=== PATIENT | male | born 1950 | race Two or more races ===

== ENCOUNTER 2017-12-05 23:09 | Inpatient (IN) | payer MEDICARE, OTHER ==
[~2017-12-05] VITALS: Ht 170.2 cm; Wt 58.5 kg
--- NOTE | 2017-12-06 01:00 | NUR ---
GPS ADMISSION NOTE, RECEIVED PATIENT FROM [facility]. PATIENT ARRIVED ON THIS UNIT AT 0100 VIA STRETCHER WITH 2 EMT ESCORTS. PATIENT ADMITTED ON A 5150 HOLD FOR DTO. PER HOLD PATIENT HAS BEEN POUNDING ON THE DOORS AND THROWING FURNITURE AROUND HIS APARTMENT. PATIENT HAS ALSO THREATENED HIS ROOMMATE AND NOW HIS ROOMMATE IS FEARFUL FOR HIS SAFETY. PATIENT ALSO HAS NOT BEEN TAKING HIS MEDICATION FOR ONE MONTH. PATIENT UNABLE TO CONTRACT FOR SAFETY AT THIS TIME. THE 5150 WAS REVIEWED AND THE DOCUMENTATION IN THE 5150 HOLD APPEARS TO REFLECT THE PRESENTATION OF THE PATIENT. UPON FACE TO FACE ASSESSMENT PATIENT IS CURRENTLY LYING IN BED AWAKE, HAS NO S/S OR COMPLAINTS OF PAIN AT THIS TIME. PATIENT IS DISPLAYING NO S/S OF APPARENT DISTRESS. PATIENT BREATHING IS UNLABORED WITH EQUAL RISE AND FALL OF THE CHEST. PATIENT IS ALERT AND ORIENTATED X 3 ON ROOM AIR. PATIENT ASSISTED WITH TURING AND REPOSITIONING Q2HR AND PRN FOR COMFORT AND CIRCULATION. PATIENT HAS NO NEEDS AT THIS TIME. PATIENT IS NOTED TO CALM, DISHEVELED, DISORGANIZED, COOPERATIVE, AND NEEDS REDIRECTION. PATIENT IS UNDER THE PSYCHIATRIC CARE OF DR. PALACIOS AND THE MEDICAL CARE OF DR LUNA. PATIENT BELONGINGS WERE INVENTORIED AND CHECKED FOR CONTRABAND. ALL CONTRABAND REMOVED AND STORED IN PATIENT HALLWAY LOCKER. PATIENT ADVANCED DIRECTIVES PREFERENCE, IMMUNIZATIONS QUESTIONER, NECESSARY PAPERWORK AND, SKIN ASSESSMENT COMPLETED. PATIENT ORIENTATED TO ROOM, FLOOR, AND STAFF WITH ALL QUESTIONS ANSWERED. PATIENT EDUCATED ON THE USE OF THE CALL JOSHUA. PATIENT BED SIDE RAILS ARE UP X 2 FOR SAFETY. PATIENT BED IS LOCKED, LOW AND I WILL CONTINUE TO MONITOR THIS PATIENT Q 15 MIN WITH THE HELP OF STAFF TO MAINTAIN SAFETY.
[2017-12-06] MEDS ORDERED: ZOLPIDEM TARTRATE 5 MG TABLET PO PRN (01:30)
[2017-12-06] MEDS ORDERED: LORAZEPAM 0.5 MG TABLET PO PRN (01:30)
[2017-12-06] MEDS ORDERED: MAGNESIUM HYDROXIDE 30 ML UDC PO PRN (01:30)
[2017-12-06] MEDS ORDERED: ACETAMINOPHEN 325 MG TABLET PO PRN (01:30)
[2017-12-06] MEDS ORDERED: MAG HYDROX/AL HYDROX/SIMETH 30 ML UDC PO PRN (01:30)
[2017-12-06] MEDS ORDERED: LEVE500T20 PO (01:54)
[2017-12-06] MEDS ORDERED: ZIPR80CA2 PO (02:04)
[2017-12-06] MEDS ORDERED: QUET400T PO (02:04)
[2017-12-06] MEDS ORDERED: CYAN10009 PO (02:04)
[2017-12-06] MEDS ORDERED: CHOL200026 PO (02:04)
[2017-12-06 02:47] VITALS: BP 105/65
[2017-12-06 07:29] LABS: ALBUMIN 3.1 g/dL (3.4-5.0); BILIRUBIN,TOTAL 0.5 mg/dL (0.2-1.0); CALCIUM, SERUM 8.6 mg/dL (8.5-10.1); POTASSIUM 3.5 mmol/L (3.5-5.1); TOTAL PROTEIN, SERUM 6.4 g/dL (6.4-8.2)
[2017-12-06 07:31] LABS: BASOPHILS # (AUTO) 0.1 /CMM (0.0-0.2); BASOPHILS % (AUTO) 0.7 % (0.0-2.0); EOSINOPHILS % (AUTO) 2.9 % (0.0-6.0); HEMATOCRIT 37 % (39-51); HEMOGLOBIN 12.3 g/dL (13.5-17.5); LYMPHOCYTES # (AUTO) 3.3 /CMM (0.8-4.8); LYMPHOCYTES % (AUTO) 43.3 % (20.0-44.0); MEAN CORPUSCULAR HEMOGLOBIN 31 PG (26.0-33.0); MEAN CORPUSCULAR HGB CONC 33 g/dl (31.0-36.0); MEAN CORPUSCULAR VOLUME 93 fL (80-96); MONOCYTES # (AUTO) 0.7 /CMM (0.1-1.30); MONOCYTES % (AUTO) 9.5 % (2.0-12.0); NEUTROPHILS # (AUTO) 3.3 /CMM (1.8-8.9); NEUTROPHILS % (AUTO) 43.6 % (43.0-81.0); PLATELET COUNT (AUTO) 177 /CMM (150-450); RDW COEFFICIENT OF VARIATION 14.6 (11.5-15.0); RED BLOOD CELL COUNT(AUTO) 3.98 MIL/uL (4.5-6.0); WHITE BLOOD COUNT (AUTO) 7.5 K/uL (4.3-11.0)
[2017-12-06 08:00] VITALS: BP 101/53
[2017-12-06] MEDS: NICOTINE PATCH (21MG) 21 MG PATCH.TD24 TD SCH (09:21)
[2017-12-06] MEDS: QUETIAPINE FUMARATE 25 MG TABLET PO SCH ×2 (12:19→16:59)
[2017-12-06 16:00] VITALS: BP 104/65
[2017-12-06 20:58] VITALS: BP 109/62
[2017-12-06] MEDS: QUETIAPINE FUMARATE 100 MG TABLET PO SCH (21:59)
[2017-12-07 07:46] LABS: CHOLESTEROL 108 mg/dL (<200); HDL CHOLESTEROL 42 mg/dL (40-60); LDL 60 mg/dL (0-99); TRIGLYCERIDES 62 mg/dL (30-150)
[2017-12-07 08:00] VITALS: BP 124/68
[2017-12-07] MEDS: NICOTINE PATCH (21MG) 21 MG PATCH.TD24 TD SCH (08:00)
[2017-12-07] MEDS: QUETIAPINE FUMARATE 25 MG TABLET PO SCH ×3 (08:00→16:27)
--- NOTE | 2017-12-07 11:57 | NUR ---
JOELLEN sent out referrals for the pt to these ch[facility] facilities: [facility]
--- NOTE | 2017-12-07 11:57 | NUR ---
Initial Discharge Plan: Pt currently resides at [address] [place] [address]; ([phone]). Per pt, he does not want to return there. SW will work with the pt and the MD regarding appropriate discharge planning. SW will form a safe and proper discharge.
--- NOTE | 2017-12-07 11:58 | NUR ---
Adriana ([phone]) from [facility] called the SW and stated that the pt was accepted.
--- NOTE | 2017-12-07 11:58 | NUR ---
Psychiatrist, Dr. Lopez, would like the pt to go to [facility] or [facility] in terms of snf facilities.
[2017-12-07 16:29] VITALS: BP 127/90
[2017-12-07 20:20] VITALS: BP 130/65
[2017-12-07] MEDS: QUETIAPINE FUMARATE 100 MG TABLET PO SCH (21:31)
[2017-12-07] MEDS: LEVETIRACETAM (250 MG) 250 MG TABLET PO SCH (21:31)
[2017-12-08] MEDS: NICOTINE PATCH (21MG) 21 MG PATCH.TD24 TD SCH (08:48)
[2017-12-08] MEDS: QUETIAPINE FUMARATE 25 MG TABLET PO SCH ×3 (08:49→16:38)
[2017-12-08] MEDS: CYANOCOBALAMIN 100 MCG TABLET PO SCH (08:49)
[2017-12-08] MEDS: LEVETIRACETAM (250 MG) 250 MG TABLET PO SCH ×2 (08:49→20:58)
[2017-12-08] MEDS: CHOLECALCIFEROL 1,000 UNIT TABLET (VIT D3) PO SCH (08:49)
[2017-12-08 08:59] VITALS: BP 127/80
[2017-12-08 16:00] VITALS: BP 101/60
[2017-12-08 20:00] VITALS: BP 111/77
[2017-12-08] MEDS: QUETIAPINE FUMARATE 100 MG TABLET PO SCH (20:59)
[2017-12-08] MEDS: LORAZEPAM 0.5 MG TABLET PO PRN (23:24)
[2017-12-09 08:00] VITALS: BP 104/64
[2017-12-09] MEDS: NICOTINE PATCH (21MG) 21 MG PATCH.TD24 TD SCH (08:15)
[2017-12-09] MEDS: LEVETIRACETAM (250 MG) 250 MG TABLET PO SCH ×2 (08:15→21:57)
[2017-12-09] MEDS: QUETIAPINE FUMARATE 25 MG TABLET PO SCH ×2 (08:15→16:21)
[2017-12-09] MEDS: CHOLECALCIFEROL 1,000 UNIT TABLET (VIT D3) PO SCH (08:15)
[2017-12-09] MEDS: CYANOCOBALAMIN 100 MCG TABLET PO SCH (08:27)
[2017-12-09 16:11] VITALS: BP 116/64
[2017-12-09 20:00] VITALS: BP 118/55
[2017-12-09] MEDS: QUETIAPINE FUMARATE 100 MG TABLET PO SCH (21:58)
[2017-12-10 08:00] VITALS: BP 104/67
[2017-12-10] MEDS: CHOLECALCIFEROL 1,000 UNIT TABLET (VIT D3) PO SCH (08:45)
[2017-12-10] MEDS: NICOTINE PATCH (21MG) 21 MG PATCH.TD24 TD SCH (08:45)
[2017-12-10] MEDS: LEVETIRACETAM (250 MG) 250 MG TABLET PO SCH ×2 (08:46→20:22)
[2017-12-10] MEDS: QUETIAPINE FUMARATE 25 MG TABLET PO SCH ×2 (08:46→16:37)
[2017-12-10] MEDS: CYANOCOBALAMIN 100 MCG TABLET PO SCH (09:30)
[2017-12-10 16:39] VITALS: BP 109/63
[2017-12-10 20:00] VITALS: BP 107/57
[2017-12-10] MEDS: QUETIAPINE FUMARATE 100 MG TABLET PO SCH (21:13)
[2017-12-11 08:00] VITALS: BP 124/69
[2017-12-11] MEDS: LEVETIRACETAM (250 MG) 250 MG TABLET PO SCH ×2 (08:26→21:28)
[2017-12-11] MEDS: NICOTINE PATCH (21MG) 21 MG PATCH.TD24 TD SCH (08:26)
[2017-12-11] MEDS: QUETIAPINE FUMARATE 25 MG TABLET PO SCH ×2 (08:26→16:39)
[2017-12-11] MEDS: CHOLECALCIFEROL 1,000 UNIT TABLET (VIT D3) PO SCH (08:26)
[2017-12-11] MEDS: CYANOCOBALAMIN 100 MCG TABLET PO SCH (09:00)
[2017-12-11 16:00] VITALS: BP 141/75
[2017-12-11 20:07] VITALS: BP 110/73
[2017-12-11] MEDS: QUETIAPINE FUMARATE 100 MG TABLET PO SCH (21:28)
[2017-12-11] MEDS: LORAZEPAM 0.5 MG TABLET PO PRN (22:21)
[2017-12-12 08:50] VITALS: BP 106/59
[2017-12-12] MEDS: NICOTINE PATCH (21MG) 21 MG PATCH.TD24 TD SCH (08:57)
[2017-12-12] MEDS: CHOLECALCIFEROL 1,000 UNIT TABLET (VIT D3) PO SCH (08:57)
[2017-12-12] MEDS: LEVETIRACETAM (250 MG) 250 MG TABLET PO SCH ×2 (08:57→20:30)
[2017-12-12] MEDS: QUETIAPINE FUMARATE 25 MG TABLET PO SCH ×2 (08:57→16:43)
[2017-12-12] MEDS: CYANOCOBALAMIN 100 MCG TABLET PO SCH (08:59)
[2017-12-12 16:00] VITALS: BP 113/62
[2017-12-12 19:53] VITALS: BP 121/79
[2017-12-12] MEDS: QUETIAPINE FUMARATE 100 MG TABLET PO SCH (21:04)
[2017-12-12] MEDS: LORAZEPAM 0.5 MG TABLET PO PRN (22:58)
[2017-12-13 08:00] VITALS: BP 103/61
[2017-12-13] MEDS: LEVETIRACETAM (250 MG) 250 MG TABLET PO SCH ×2 (08:16→20:29)
[2017-12-13] MEDS: QUETIAPINE FUMARATE 25 MG TABLET PO SCH ×2 (08:16→16:25)
[2017-12-13] MEDS: CHOLECALCIFEROL 1,000 UNIT TABLET (VIT D3) PO SCH (08:16)
[2017-12-13] MEDS: CYANOCOBALAMIN 100 MCG TABLET PO SCH (08:16)
[2017-12-13] MEDS: NICOTINE PATCH (21MG) 21 MG PATCH.TD24 TD SCH (08:16)
[2017-12-13 16:14] VITALS: BP 109/63
[2017-12-13 20:51] VITALS: BP 104/60
[2017-12-13] MEDS: QUETIAPINE FUMARATE 100 MG TABLET PO SCH (21:10)
[2017-12-13] MEDS: LORAZEPAM 0.5 MG TABLET PO PRN (21:47)
[2017-12-14 08:00] VITALS: BP 111/62
[2017-12-14] MEDS: NICOTINE PATCH (21MG) 21 MG PATCH.TD24 TD SCH (08:34)
[2017-12-14] MEDS: LEVETIRACETAM (250 MG) 250 MG TABLET PO SCH ×2 (08:34→21:53)
[2017-12-14] MEDS: CHOLECALCIFEROL 1,000 UNIT TABLET (VIT D3) PO SCH (08:34)
[2017-12-14] MEDS: CYANOCOBALAMIN 100 MCG TABLET PO SCH (08:34)
[2017-12-14] MEDS: QUETIAPINE FUMARATE 25 MG TABLET PO SCH ×2 (08:34→17:12)
[2017-12-14 16:00] VITALS: BP 113/61
[2017-12-14 21:45] VITALS: BP 106/67
[2017-12-14] MEDS ORDERED: QUETIAPINE FUMARATE 100 MG TABLET ONE (22:04)
[2017-12-14] MEDS: QUETIAPINE FUMARATE 100 MG TABLET PO SCH (22:09)
[2017-12-15 07:35] LABS: CALCIUM, SERUM 9.2 mg/dL (8.5-10.1); CREATININE 0.9 mg/dL (0.6-1.3); POTASSIUM 3.9 mmol/L (3.5-5.1)
[2017-12-15] MEDS: QUETIAPINE FUMARATE 25 MG TABLET PO SCH (08:10)
[2017-12-15] MEDS: NICOTINE PATCH (21MG) 21 MG PATCH.TD24 TD SCH (08:10)
[2017-12-15] MEDS: LEVETIRACETAM (250 MG) 250 MG TABLET PO SCH (08:10)
[2017-12-15] MEDS: CYANOCOBALAMIN 100 MCG TABLET PO SCH (08:10)
[2017-12-15] MEDS: CHOLECALCIFEROL 1,000 UNIT TABLET (VIT D3) PO SCH (08:10)
[2017-12-15 08:20] VITALS: BP 116/67
--- NOTE | 2017-12-15 12:52 | NUR ---
Discharge Note: Pt was discharged to [facility] located at [address] [place] [address]; . She was transported via [facility] (Trip #[id number]) at 1:00PM. There was no family member for this pt to contact but the [facility] Liaison is aware and is agreeable with this placement. Upon discharge, pt appeared to be in a euthymic mood with a calm affect. Pt denied suicidal and homicidal ideation as well as both auditory and visual hallucinations. Pt will be under the care of his psychiatrist, Dr. Lopez, located at [address] [facility] [address], [place] [address]; ) and medical laboratory manager, Dr. Bourgeois, located at [address] [place] [address]; ).
--- NOTE | 2017-12-15 13:30 | NUR ---
GPS/RN PATIENT CLEARED FOR DISCHARGE TO [facility] BY DR PALACIOS AND DR GELLER. MEDICATIONS RECONCILED BY BOTH DR'S. EXIT CARE, AFTERCARE PLAN AND MEDICATIONS EXPLAINED TO PATIENT, VERBALIZED UNDERSTANDING. BELONGINGS RETURNED AND D/C PICTURE TAKEN. PATIENT DENIES SI/HI/AH UPON DISCHARGE, PSYCHIATRIC TREATMENT PLANS MET. REPORT GIVEN TO SURAJ AT FACILITY. LEFT UNIT CALM, COOPERATIVE,STABLE CONDITION WITH NO DISTRESS NOTE. AMBULANCE TRANSPORT AT SIDE.
== END 2017-12-15 13:30 | DRG 885 ==
LOC: GPS 12-06 00:47
PROVIDERS: ADMIT Psychiatry & Neurology Psychiatry; ATTEND Psychiatry & Neurology Psychiatry
DX: F25.0 Schizoaffective disorder, bipolar type (principal); N17.9 Acute kidney failure, unspecified; E44.1 Mild protein-calorie malnutrition; F29 Unspecified psychosis not due to a substance or known physiological condition; F41.9 Anxiety disorder, unspecified; N40.0 Benign prostatic hyperplasia without lower urinary tract symptoms; Z81.8 Family history of other mental and behavioral disorders; Z79.899 Other long term (current) drug therapy; D63.8 Anemia in other chronic diseases classified elsewhere; Z72.0 Tobacco use; G40.909 Epilepsy, unspecified, not intractable, without status epilepticus
CPT/HCPCS: 36415; 80048-TC; 80053-TC; 80061-TC; 82542; 85025-TC; 87081-TC

== ENCOUNTER 2018-06-06 15:16 | Inpatient (IN) | payer MEDICARE, OTHER ==
[~2018-06-06] VITALS: Ht 182.9 cm; Wt 68.0 kg
[~2018-06-06 15:16] MED LIST: CHOL200026 PO; CYAN10009 PO; LEVE500T20 PO
[2018-06-06] MEDS ORDERED: OLANZAPINE 10 MG VIAL IM ONE ×2 (16:00→16:10)
--- NOTE | 2018-06-06 16:00 | NUR ---
patient BIBA [facility] unit 712 from [facility] "agitated/combative and restless need psych eval". annette Rea at bedside for eval. skin warm to touch, breathing evenly and unlabored. no facial grimace noted. kept comfortable. will continue to monitor accordingly.
[2018-06-06 16:06] LABS: BASOPHILS # (AUTO) 0.1 /CMM (0.0-0.2); BASOPHILS % (AUTO) 1.2 % (0.0-2.0); EOSINOPHILS % (AUTO) 5.6 % (0.0-6.0); HEMATOCRIT 42 % (39-51); HEMOGLOBIN 13.8 g/dL (13.5-17.5); LYMPHOCYTES # (AUTO) 2.1 /CMM (0.8-4.8); LYMPHOCYTES % (AUTO) 31.2 % (20.0-44.0); MEAN CORPUSCULAR HGB CONC 33 g/dl (31.0-36.0); MEAN CORPUSCULAR VOLUME 91 fL (80-96); MONOCYTES # (AUTO) 0.6 /CMM (0.1-1.30); MONOCYTES % (AUTO) 8.8 % (2.0-12.0); NEUTROPHILS # (AUTO) 3.5 /CMM (1.8-8.9); NEUTROPHILS % (AUTO) 53.2 % (43.0-81.0); PLATELET COUNT (AUTO) 197 /CMM (150-450); RED BLOOD CELL COUNT(AUTO) 4.62 MIL/uL (4.5-6.0); WHITE BLOOD COUNT (AUTO) 6.6 K/uL (4.3-11.0)
[2018-06-06 16:16] LABS: CALCIUM, SERUM 9.1 mg/dL (8.5-10.1); CARBON DIOXIDE 29 mmol/L (21-32); CHLORIDE 100 mmol/L (98-107); CREATININE 0.9 mg/dL (0.6-1.3); GLUCOSE 91 mg/dL (74-106); POTASSIUM 3.8 mmol/L (3.5-5.1); SODIUM SERUM 136 mmol/L (136-145); UREA NITROGEN, BLOOD 18 mg/dL (7-18)
--- NOTE | 2018-06-06 16:20 | NUR ---
put patient on a velcro restraint due to agitation and tried to elope.
[2018-06-06 16:31] LABS: ALANINE AMINOTRANSFERASE 26 U/L (12-78); ALBUMIN 3.6 g/dL (3.4-5.0); ALCOHOL, BLOOD < 3 mg/dL (0-0); ALKALINE PHOSPHATASE 88 U/L (46-116); ASPARTATE AMINOTRANSFERASE 18 U/L (15-37); BILIRUBIN,DIRECT 0.1 mg/dL (0.0-0.2); BILIRUBIN,TOTAL 0.3 mg/dL (0.2-1.0); SALICYLATE 3.4 mg/dL (2.8-20.0); TOTAL PROTEIN, SERUM 7.4 g/dL (6.4-8.2)
[2018-06-06 16:32] LABS: ACETAMINOPHEN 0 ug/ml (10-30)
--- NOTE | 2018-06-06 16:55 | NUR ---
urine collected and sent to lab
[2018-06-06 16:59] LABS: APPEARANCE,URINE Clear (CLEAR); BILIRUBIN,URINE Negative (NEGATIVE); BLOOD, URINE Negative Ery/uL (NEGATIVE); COLOR,URINE Yellow (YELLOW); KETONES,URINE Negative (NEGATIVE); LEUKOCYTE ESTERASE ,URINE Negative (NEGATIVE); NITRITE, URINE Negative (NEGATIVE); PROTEIN,URINE Negative (NEGATIVE); UGLUCOSE Negative (NEGATIVE); UROBILINOGEN,URINE 0.2 EU/dL (0.2)
--- NOTE | 2018-06-06 17:11 | NUR ---
CALLED [facility] FOR EVAL. ETA 1 HOUR
--- NOTE | 2018-06-06 18:10 | NUR ---
pinky on site for psych eval.
--- NOTE | 2018-06-06 19:27 | NUR ---
report given to manager graphic RN for MENDEZ.
--- NOTE | 2018-06-06 19:35 | NUR ---
Received pt from DONALD Clay. Pt is here for Psych Eval. He is Alert and awake but no information was obtained from him. He refuses to talk at this time.
--- NOTE | 2018-06-06 19:45 | NUR ---
Pt yelling and screaming using foul language. Pt remains with restraints. Pulses good.
--- NOTE | 2018-06-06 21:30 | NUR ---
Pt will be admitted to [facility] Unit - [address]
--- NOTE | 2018-06-06 21:50 | NUR ---
Report given to DONALD Javier.
--- NOTE | 2018-06-06 21:55 | NUR ---
Pt transported to [facility] Rm 216 B via wheelchair. VSS
[2018-06-06 22:00] VITALS: BP 131/78
--- NOTE | 2018-06-06 22:00 | NUR ---
GPS FROG OR OYSTER FARMWORKER NOTES: ADMITTED A 68YO MALE FROM THE EMERGENCY DEPARTMENT. PATIENT CAME FROM [facility] , AND WAS PLACED ON HOLD HERE AT [facility]. PER HOLD THE PATIENT WAS CONFUSED, DISORGANIZED, DISORIENTED, AGGRESSIVE AT FACILITY, GRABBING OTHER RESIDENTS, THROWING CHAIRS, FEELING PARANOID AND SUSPICIOUS OF PEOPLE TALKING ABOUT HIM. PATIENT WAS BROUGHT IN THE UNIT IN A WHEELCHAIR BY ER STAFF. PATIENT THEN USHERED TO ROOM. UPON FACE TO FACE ASSESSMENT PATIENT PRESENTS ALERT AND ORIENTED X1, APPEARS CONFUSED, DISORGANIZED, DISHEVELED, UNKEMPT, SUSPICIOUS OF THE SURROUNDINGS. BELONGINGS AND CONTRABAND WERE CHECKED. SKIN AND BODY ASSESSMENT DONE. PATIENT HAS NO ACTIVE OR OPEN WOUND NOTED THIS TIME. Q15 MIN CHECKS INITIATED. PATIENT MADE AWARE OF UNIT POLICIES AND PROCEDURES. ROWDY PALACIOS AND SABRINA MADE AWARE OF THIS ADMISSION. DR. BENNETT CAME IN THE UNIT TO SEE THE PATIENT. MED RECON DONE. ADMISSION ASSESSMENTS DONE. SAFETY AND FALL PRECAUTIONS OBSERVED. OFFERED PATIENT SOME SNACKS AND FLUIDS. WILL MONITOR PATIENT FOR MOOD AND BEHAVIOR. WILL ENDORSE TO DAY SHIFT NURSE.
[2018-06-06] MEDS ORDERED: ZOLPIDEM TARTRATE 5 MG TABLET PO PRN (22:30)
[2018-06-06] MEDS ORDERED: ACETAMINOPHEN 325 MG TABLET PO PRN (22:30)
[2018-06-06] MEDS ORDERED: MAGNESIUM HYDROXIDE 30 ML UDC PO PRN (22:30)
[2018-06-06] MEDS ORDERED: MAG HYDROX/AL HYDROX/SIMETH 30 ML UDC PO PRN (22:30)
[2018-06-07] MEDS: LORAZEPAM 0.5 MG TABLET PO PRN ×2 (02:41→08:36)
--- NOTE | 2018-06-07 02:45 | NUR ---
GPS RN NOTES: PATIENT IS AWAKE AT THIS TIME. NOTED TO BE TALKING NON SENSICAL STUFF, AND STARTING TO BECOME ANXIOUS WITH HAND GESTURES. ATIVAN 0.5 MG GIVEN ORALLY. WILL MONITOR PATIENT.
--- NOTE | 2018-06-07 05:06 | NUR ---
GPS RN NOTES: PATIENT IS AWAKE, WALKING IN THE HALLWAY, RESPONDING TI INTERNAL STIMULI. TALKING TO SELF. WILL CONTINUE TO MONITOR PATIENT.
[2018-06-07 08:00] VITALS: BP 122/69
[2018-06-07 08:31] LABS: CREATININE 0.9 mg/dL (0.6-1.3)
[2018-06-07] MEDS: LEVETIRACETAM (250 MG) 250 MG TABLET PO SCH ×2 (08:32→21:27)
[2018-06-07] MEDS: CHOLECALCIFEROL 1,000 UNIT TABLET (VIT D3) PO SCH (08:32)
[2018-06-07] MEDS: CYANOCOBALAMIN 500 MCG TABLET PO SCH (08:32)
--- NOTE | 2018-06-07 08:36 | NUR ---
RN NOTES ADMINISTERED ATIVAN 0.5 MG PO PRN FOR ANXIETY, PER PATIENT REQUEST, V/S TAKEN BP-122/69, P-67, CONTINUED MONITORING.
[2018-06-07 08:37] LABS: CHOLESTEROL 128 mg/dL (<200); HDL CHOLESTEROL 60 mg/dL (40-60); LDL 73 mg/dL (0-99); TRIGLYCERIDES 32 mg/dL (30-150)
[2018-06-07] MEDS: MINERAL OIL/PETROLATUM,WHITE 120 GM JAR TP SCH ×2 (09:00→18:36)
--- NOTE | 2018-06-07 09:02 | NUR ---
WOUND CARE CONSULT: PT PRESENTS AMBULATORY AND CONTINENT WITH DRY CALLUSED HANDS AND FINGERS, ESPECIALLY KNUCKLES, PRESENT ON ADMISSION. RECOMMENDATIONS MADE FOR SKIN CARE AND DISCUSSED WITH NURSING STAFF. WILL SEE PRN. PAGAN IN AGREEMENT WITH PLAN OF CARE. Addendum: 06/07/18 at 0903 by DEVANG BENITEZ WNDNU Amended: Links added.
[2018-06-07 16:00] VITALS: BP 116/64
[2018-06-07] MEDS: QUETIAPINE FUMARATE 25 MG TABLET PO SCH (17:42)
[2018-06-07] MEDS: NICOTINE PATCH (21MG) 21 MG PATCH.TD24 TD SCH (17:42)
[2018-06-07 20:00] VITALS: BP 105/55
[2018-06-07] MEDS: QUETIAPINE FUMARATE 100 MG TABLET PO SCH (21:27)
[2018-06-08 08:00] VITALS: BP 114/63
[2018-06-08] MEDS: CYANOCOBALAMIN 500 MCG TABLET PO SCH (09:09)
[2018-06-08] MEDS: CHOLECALCIFEROL 1,000 UNIT TABLET (VIT D3) PO SCH (09:09)
[2018-06-08] MEDS: LEVETIRACETAM (250 MG) 250 MG TABLET PO SCH ×2 (09:10→20:52)
[2018-06-08] MEDS: QUETIAPINE FUMARATE 25 MG TABLET PO SCH ×2 (09:10→16:42)
[2018-06-08] MEDS: NICOTINE PATCH (21MG) 21 MG PATCH.TD24 TD SCH (09:10)
[2018-06-08] MEDS: MINERAL OIL/PETROLATUM,WHITE 120 GM JAR TP SCH ×2 (09:14→16:43)
--- NOTE | 2018-06-08 11:50 | NUR ---
JOELLEN contacted Ethan ([phone]) from [facility] and he stated that the pt can return to their facility when he is ready to be discharged.
--- NOTE | 2018-06-08 14:14 | NUR ---
Initial Discharge Plan: Pt currently resides at [facility] located at [address] [place] [address]; ([phone]). Per pt, he would like to return there once he is discharged. SW will work with the pt and the MD regarding appropriate discharge planning. SW will form a safe and proper discharge.
--- NOTE | 2018-06-08 14:17 | NUR ---
JOELLEN faxed a clinical packet to Ethan from [facility] to the following fax number: [phone].
[2018-06-08 16:00] VITALS: BP 120/75
[2018-06-08 20:07] VITALS: BP 114/68
[2018-06-08] MEDS: QUETIAPINE FUMARATE 100 MG TABLET PO SCH (21:05)
[2018-06-09 08:00] VITALS: BP 115/70
[2018-06-09] MEDS: CYANOCOBALAMIN 500 MCG TABLET PO SCH (08:30)
[2018-06-09] MEDS: QUETIAPINE FUMARATE 25 MG TABLET PO SCH ×2 (08:30→17:24)
[2018-06-09] MEDS: NICOTINE PATCH (21MG) 21 MG PATCH.TD24 TD SCH (08:30)
[2018-06-09] MEDS: LORAZEPAM 0.5 MG TABLET PO PRN ×2 (08:31→20:40)
[2018-06-09] MEDS: CHOLECALCIFEROL 1,000 UNIT TABLET (VIT D3) PO SCH (08:31)
[2018-06-09] MEDS: MINERAL OIL/PETROLATUM,WHITE 120 GM JAR TP SCH ×2 (08:33→17:24)
[2018-06-09] MEDS: LEVETIRACETAM (250 MG) 250 MG TABLET PO SCH ×2 (10:07→20:40)
[2018-06-09 16:00] VITALS: BP 114/64
[2018-06-09 20:00] VITALS: BP 127/85
--- NOTE | 2018-06-09 20:40 | NUR ---
ATIVAN 0.5 MG TAB PO GIVEN FOR SLEEP.
[2018-06-09] MEDS: QUETIAPINE FUMARATE 100 MG TABLET PO SCH (22:50)
--- NOTE | 2018-06-09 23:04 | NUR ---
OFFERED ATIVAN 0.5 MG TAB PO X2, PATIENT REFUSED.
[2018-06-10 08:00] VITALS: BP 126/52
[2018-06-10] MEDS: MINERAL OIL/PETROLATUM,WHITE 120 GM JAR TP SCH ×2 (09:08→17:26)
[2018-06-10] MEDS: CYANOCOBALAMIN 500 MCG TABLET PO SCH (09:11)
[2018-06-10] MEDS: LEVETIRACETAM (250 MG) 250 MG TABLET PO SCH ×2 (09:11→20:56)
[2018-06-10] MEDS: CHOLECALCIFEROL 1,000 UNIT TABLET (VIT D3) PO SCH (09:11)
[2018-06-10] MEDS: NICOTINE PATCH (21MG) 21 MG PATCH.TD24 TD SCH (09:11)
[2018-06-10] MEDS: QUETIAPINE FUMARATE 25 MG TABLET PO SCH ×2 (09:12→17:25)
--- NOTE | 2018-06-10 15:09 | NUR ---
pacing back and forth about unit,continues to talk to self.
[2018-06-10 16:00] VITALS: BP 120/70
[2018-06-10 20:00] VITALS: BP 125/64
[2018-06-10] MEDS: QUETIAPINE FUMARATE 100 MG TABLET PO SCH (20:56)
[2018-06-11 08:09] VITALS: BP 124/67
[2018-06-11] MEDS: MINERAL OIL/PETROLATUM,WHITE 120 GM JAR TP SCH ×2 (09:00→16:41)
[2018-06-11] MEDS: NICOTINE PATCH (21MG) 21 MG PATCH.TD24 TD SCH (10:04)
[2018-06-11] MEDS: CYANOCOBALAMIN 500 MCG TABLET PO SCH (10:04)
[2018-06-11] MEDS: LEVETIRACETAM (250 MG) 250 MG TABLET PO SCH ×2 (10:04→21:09)
[2018-06-11] MEDS: CHOLECALCIFEROL 1,000 UNIT TABLET (VIT D3) PO SCH (10:04)
[2018-06-11] MEDS: QUETIAPINE FUMARATE 25 MG TABLET PO SCH ×2 (10:07→16:26)
[2018-06-11 16:14] VITALS: BP 106/59
[2018-06-11 20:52] VITALS: BP 112/60
[2018-06-11] MEDS: QUETIAPINE FUMARATE 100 MG TABLET PO SCH (21:09)
[2018-06-12 08:00] VITALS: BP 110/72
[2018-06-12] MEDS: NICOTINE PATCH (21MG) 21 MG PATCH.TD24 TD SCH (09:03)
[2018-06-12] MEDS: CYANOCOBALAMIN 500 MCG TABLET PO SCH (09:03)
[2018-06-12] MEDS: QUETIAPINE FUMARATE 25 MG TABLET PO SCH ×2 (09:03→17:48)
[2018-06-12] MEDS: CHOLECALCIFEROL 1,000 UNIT TABLET (VIT D3) PO SCH (09:03)
[2018-06-12] MEDS: LEVETIRACETAM (250 MG) 250 MG TABLET PO SCH ×2 (09:03→21:18)
[2018-06-12] MEDS: MINERAL OIL/PETROLATUM,WHITE 120 GM JAR TP SCH ×2 (09:08→17:40)
[2018-06-12 16:00] VITALS: BP 124/75
[2018-06-12] MEDS: LORAZEPAM 0.5 MG TABLET PO PRN (19:47)
[2018-06-12 20:00] VITALS: BP 122/83
[2018-06-12] MEDS: QUETIAPINE FUMARATE 100 MG TABLET PO SCH (21:18)
[2018-06-13 08:00] VITALS: BP 118/67
[2018-06-13] MEDS: MINERAL OIL/PETROLATUM,WHITE 120 GM JAR TP SCH ×2 (09:36→16:16)
[2018-06-13] MEDS: CYANOCOBALAMIN 500 MCG TABLET PO SCH (09:36)
[2018-06-13] MEDS: LEVETIRACETAM (250 MG) 250 MG TABLET PO SCH ×2 (09:36→21:18)
[2018-06-13] MEDS: CHOLECALCIFEROL 1,000 UNIT TABLET (VIT D3) PO SCH (09:36)
[2018-06-13] MEDS: NICOTINE PATCH (21MG) 21 MG PATCH.TD24 TD SCH (09:36)
[2018-06-13] MEDS: QUETIAPINE FUMARATE 25 MG TABLET PO SCH ×2 (09:36→16:16)
[2018-06-13 16:00] VITALS: BP 120/86
[2018-06-13] MEDS: LORAZEPAM 0.5 MG TABLET PO PRN (19:19)
[2018-06-13 20:00] VITALS: BP 140/74
[2018-06-13] MEDS: QUETIAPINE FUMARATE 100 MG TABLET PO SCH (21:18)
[2018-06-14 08:00] VITALS: BP 117/52
[2018-06-14] MEDS: CYANOCOBALAMIN 500 MCG TABLET PO SCH (09:13)
[2018-06-14] MEDS: LEVETIRACETAM (250 MG) 250 MG TABLET PO SCH ×2 (09:13→21:07)
[2018-06-14] MEDS: QUETIAPINE FUMARATE 25 MG TABLET PO SCH ×2 (09:13→17:11)
[2018-06-14] MEDS: CHOLECALCIFEROL 1,000 UNIT TABLET (VIT D3) PO SCH (09:13)
[2018-06-14] MEDS: NICOTINE PATCH (21MG) 21 MG PATCH.TD24 TD SCH (09:14)
[2018-06-14] MEDS: MINERAL OIL/PETROLATUM,WHITE 120 GM JAR TP SCH ×2 (09:15→17:12)
--- NOTE | 2018-06-14 15:40 | NUR ---
JOELLEN contacted Ethan ([phone]) from [facility] and informed him that the pt will be discharging on 06/16/18.
[2018-06-14 16:00] VITALS: BP 120/71
[2018-06-14] MEDS: LORAZEPAM 0.5 MG TABLET PO PRN (19:31)
[2018-06-14 20:31] VITALS: BP 122/72
[2018-06-14] MEDS: QUETIAPINE FUMARATE 100 MG TABLET PO SCH (21:08)
[2018-06-15 08:00] VITALS: BP 106/62
--- NOTE | 2018-06-15 08:00 | NUR ---
GPS RN AM NOTES PATIENT WALKING IN HIS ROOM, MUMBLING TO SELF, BACK AND FORTH AT THE HALLWAY,CONFUSED PARANOID, NO ACUTE DISTRESS NOTED. CALM, COOPERATIVE, MED COMPLIANT. WILL CONTINUE TO MONITOR Q 15 MINS. TO MAINTAIN SAFETY.
[2018-06-15] MEDS: NICOTINE PATCH (21MG) 21 MG PATCH.TD24 TD SCH (08:49)
[2018-06-15] MEDS: QUETIAPINE FUMARATE 25 MG TABLET PO SCH ×2 (08:49→16:39)
[2018-06-15] MEDS: CYANOCOBALAMIN 500 MCG TABLET PO SCH (08:49)
[2018-06-15] MEDS: LORAZEPAM 0.5 MG TABLET PO PRN (08:49)
[2018-06-15] MEDS: CHOLECALCIFEROL 1,000 UNIT TABLET (VIT D3) PO SCH (08:50)
[2018-06-15] MEDS: LEVETIRACETAM (250 MG) 250 MG TABLET PO SCH ×2 (08:50→21:31)
--- NOTE | 2018-06-15 11:54 | NUR ---
JOELLEN contacted Ethan ([phone]) from [facility] and informed him that the pt will be discharging on 06/19/18.
--- NOTE | 2018-06-15 11:54 | NUR ---
JOELLEN faxed a clinical packet to Ethan from [facility] to the following fax number: [phone].
[2018-06-15] MEDS: MINERAL OIL/PETROLATUM,WHITE 120 GM JAR TP SCH ×2 (11:56→16:40)
[2018-06-15 16:00] VITALS: BP 105/62
[2018-06-15 20:00] VITALS: BP 105/63
[2018-06-15] MEDS: QUETIAPINE FUMARATE 100 MG TABLET PO SCH (21:31)
[2018-06-16 08:00] VITALS: BP 139/86
[2018-06-16] MEDS: QUETIAPINE FUMARATE 25 MG TABLET PO SCH ×2 (08:40→16:11)
[2018-06-16] MEDS: NICOTINE PATCH (21MG) 21 MG PATCH.TD24 TD SCH (08:40)
[2018-06-16] MEDS: CHOLECALCIFEROL 1,000 UNIT TABLET (VIT D3) PO SCH (08:40)
[2018-06-16] MEDS: LEVETIRACETAM (250 MG) 250 MG TABLET PO SCH ×2 (08:40→21:15)
[2018-06-16] MEDS: CYANOCOBALAMIN 500 MCG TABLET PO SCH (08:40)
[2018-06-16] MEDS: MINERAL OIL/PETROLATUM,WHITE 120 GM JAR TP SCH ×2 (08:42→16:11)
[2018-06-16 16:02] VITALS: BP 125/71
[2018-06-16 20:26] VITALS: BP 140/79
[2018-06-16] MEDS: QUETIAPINE FUMARATE 100 MG TABLET PO SCH (21:15)
[2018-06-17 08:00] VITALS: BP 109/62
[2018-06-17] MEDS: QUETIAPINE FUMARATE 25 MG TABLET PO SCH ×2 (09:19→16:19)
[2018-06-17] MEDS: LEVETIRACETAM (250 MG) 250 MG TABLET PO SCH ×2 (09:19→21:03)
[2018-06-17] MEDS: CYANOCOBALAMIN 500 MCG TABLET PO SCH (09:19)
[2018-06-17] MEDS: CHOLECALCIFEROL 1,000 UNIT TABLET (VIT D3) PO SCH (09:19)
[2018-06-17] MEDS: MINERAL OIL/PETROLATUM,WHITE 120 GM JAR TP SCH ×2 (09:33→16:19)
[2018-06-17] MEDS: NICOTINE PATCH (21MG) 21 MG PATCH.TD24 TD SCH (11:05)
[2018-06-17 15:50] VITALS: BP 114/64
[2018-06-17 20:00] VITALS: BP 122/66
[2018-06-17] MEDS: QUETIAPINE FUMARATE 100 MG TABLET PO SCH (21:03)
[2018-06-17] MEDS: LORAZEPAM 0.5 MG TABLET PO PRN (21:52)
[2018-06-18 08:00] VITALS: BP 118/68
[2018-06-18] MEDS: MINERAL OIL/PETROLATUM,WHITE 120 GM JAR TP SCH ×2 (09:19→17:02)
[2018-06-18] MEDS: QUETIAPINE FUMARATE 25 MG TABLET PO SCH ×2 (09:19→17:01)
[2018-06-18] MEDS: NICOTINE PATCH (21MG) 21 MG PATCH.TD24 TD SCH (09:19)
[2018-06-18] MEDS: CYANOCOBALAMIN 500 MCG TABLET PO SCH (09:19)
[2018-06-18] MEDS: LEVETIRACETAM (250 MG) 250 MG TABLET PO SCH ×2 (09:19→21:21)
[2018-06-18] MEDS: CHOLECALCIFEROL 1,000 UNIT TABLET (VIT D3) PO SCH (09:19)
[2018-06-18] MEDS: LORAZEPAM 0.5 MG TABLET PO PRN ×2 (14:42→21:41)
--- NOTE | 2018-06-18 14:47 | NUR ---
Patient pacing the hallway. Mumbling in high pitch. Appears to be talking to someone and advising them to stay away. Given ativan for anxiety.
[2018-06-18 16:00] VITALS: BP 116/61
[2018-06-18 20:07] VITALS: BP 110/71
[2018-06-18] MEDS: QUETIAPINE FUMARATE 100 MG TABLET PO SCH (21:21)
[2018-06-19 08:00] VITALS: BP 108/65
[2018-06-19] MEDS: QUETIAPINE FUMARATE 25 MG TABLET PO SCH (08:44)
[2018-06-19] MEDS: CHOLECALCIFEROL 1,000 UNIT TABLET (VIT D3) PO SCH (08:44)
[2018-06-19] MEDS: CYANOCOBALAMIN 500 MCG TABLET PO SCH (08:44)
[2018-06-19] MEDS: LEVETIRACETAM (250 MG) 250 MG TABLET PO SCH (08:45)
[2018-06-19] MEDS: MINERAL OIL/PETROLATUM,WHITE 120 GM JAR TP SCH (08:47)
[2018-06-19] MEDS: NICOTINE PATCH (21MG) 21 MG PATCH.TD24 TD SCH (09:00)
--- NOTE | 2018-06-19 09:30 | NUR ---
gps wage and salary administrator: psych f/u dr. salazar here and okay to d'c pt back to snf. monica arranged for ambulance mushroom picker at 12 noon. pt made aware. pt stable for discharge. denies si/hi at this time. denies auditory/visual hallucination. pt awake, a/ox2 with disorientation to time and situation. pt not capable of signing d'c papers due to cognitive impairment. will continue to monitor.
--- NOTE | 2018-06-19 11:00 | NUR ---
gps dishwasher preparer: notes pt unable to sign discharge papers due to cognitive impairment. 2 licensed staff signed all d'c papers. pt does not have any family contacts. report given to mitchell (rn) for continuity of care at the snf.
--- NOTE | 2018-06-19 12:12 | NUR ---
Discharge Note: Pt was [facility] to [facility] located at [address] [place] [address]; . He was transported via [facility] (Trip #[id number]) at 12:00PM. There was no family member or support person for this pt to contact. Upon discharge, pt appeared to be in a euthymic mood with a calm affect. Pt denied suicidal and homicidal ideation as well as both auditory and visual hallucinations. Pt will be under the care of his psychiatrist, Dr. Lopez, located at [address] [facility] [address], [place] [address]; ) and allied health professional, Dr. Bourgeois, located at [address] [place] [address]; ).
--- NOTE | 2018-06-19 12:15 | NUR ---
GPS TRAINING INTERN: NOTES AMBULANCE HERE AND REPORT GIVEN TO ONE OF THE CREW. VSS. AWAKE, A/OX2. PT REMAINS STABLE FOR DISCHARGED. DENIES SI/HI AT THIS TIME AND DENIES AUDITORY/VISUAL HALLUCINATIONS AT THIS TIME. PT FINISHING UP HIS LUNCH AND WILL GO AFTER. ALL BELONGINGS RETURNED TO PT.
--- NOTE | 2018-06-19 12:30 | NUR ---
STEFANY TOBARN: DISCHARGED DISCHARGED BACK TO SNF IN STABLE CONDITION WITH ALL D'C PAPERS AND BELONGINGS. Addendum: 06/19/18 at 1232 by MITZI PERALTA LVN DISCHARGED TO SNF VIA AMBULANCE ACCOMPANIED BY 2 CREW.
== END 2018-06-19 12:30 | DRG 885 ==
LOC: ER 15:18 → GPS 21:36
PROVIDERS: ADMIT Psychiatry & Neurology Psychiatry; ATTEND Psychiatry & Neurology Psychiatry
DX: F20.0 Paranoid schizophrenia (principal); N40.0 Benign prostatic hyperplasia without lower urinary tract symptoms; G40.909 Epilepsy, unspecified, not intractable, without status epilepticus; F17.200 Nicotine dependence, unspecified, uncomplicated; Z98.890 Other specified postprocedural states; Z88.4 Allergy status to anesthetic agent; Z79.899 Other long term (current) drug therapy; F29 Unspecified psychosis not due to a substance or known physiological condition; F31.9 Bipolar disorder, unspecified; F25.9 Schizoaffective disorder, unspecified; Z81.8 Family history of other mental and behavioral disorders
CPT/HCPCS: 36415; 80048-TC; 80061-TC; 80076-TC; 80305; 81000-TC; 82565-TC; 85025-TC; 87081-TC; G0480; J3490

== ENCOUNTER 2018-11-07 16:46 | Inpatient (IN) | payer MEDICARE, OTHER ==
[~2018-11-07] VITALS: Ht 182.9 cm; Wt 72.6 kg
[2018-11-07] VITALS (9 sets, daily range): BP systolic 99–128; BP diastolic 55–83
[2018-11-07] MEDS ORDERED: PROPOFOL 100 ML ONE ×2 (16:52→19:56)
[2018-11-07] MEDS ORDERED: PROPOFOL 100 ML IV ONE (16:52)
--- NOTE | 2018-11-07 16:56 | NUR ---
[id number], FROM BOARD& CARE SEIZURE EPISODE X5 WITHIN 20 MINS, GIVEN 5MG VERSED IVP IN FIELD. PT REQUIRED INTUBATION BY ERMD. PLACED ON VENTILATOR BY RT. SKIN INTACT, NO OTHER ISSUES AT THIS TIME. ON MONITOR, WILL OBSERVE APPROPRIATELY.
[2018-11-07] MEDS ORDERED: ROCURONIUM BROMIDE 100 MG/10 ML VIAL IV ONE (17:00)
[2018-11-07 17:17] LABS: BASOPHILS # (AUTO) 0.1 /CMM (0.0-0.2); BASOPHILS % (AUTO) 0.3 % (0.0-2.0); EOSINOPHILS % (AUTO) 0.8 % (0.0-6.0); HEMATOCRIT 45 % (39-51); HEMOGLOBIN 14.9 g/dL (13.5-17.5); LYMPHOCYTES # (AUTO) 2.1 /CMM (0.8-4.8); LYMPHOCYTES % (AUTO) 11.8 % (20.0-44.0); MEAN CORPUSCULAR HGB CONC 33 g/dl (31.0-36.0); MEAN CORPUSCULAR VOLUME 91 fL (80-96); MONOCYTES # (AUTO) 0.9 /CMM (0.1-1.30); NEUTROPHILS # (AUTO) 14.2 /CMM (1.8-8.9); NEUTROPHILS % (AUTO) 82.1 % (43.0-81.0); PLATELET COUNT (AUTO) 229 /CMM (150-450); RED BLOOD CELL COUNT(AUTO) 4.93 MIL/uL (4.5-6.0); WHITE BLOOD COUNT (AUTO) 17.3 K/uL (4.3-11.0)
[2018-11-07 17:25] LABS: CALCIUM, SERUM 9.4 mg/dL (8.5-10.1); CARBON DIOXIDE 21 mmol/L (21-32); CHLORIDE 105 mmol/L (98-107); CREATININE 1.6 mg/dL (0.6-1.3); GLUCOSE 167 mg/dL (74-106); POTASSIUM 4.3 mmol/L (3.5-5.1); SODIUM SERUM 142 mmol/L (136-145); UREA NITROGEN, BLOOD 26 mg/dL (7-18)
[2018-11-07 17:31] LABS: ALANINE AMINOTRANSFERASE 31 U/L (12-78); ALKALINE PHOSPHATASE 85 U/L (46-116); ASPARTATE AMINOTRANSFERASE 29 U/L (15-37); BILIRUBIN,DIRECT 0.1 mg/dL (0.0-0.2); BILIRUBIN,TOTAL 0.5 mg/dL (0.2-1.0); TOTAL PROTEIN, SERUM 8.4 g/dL (6.4-8.2)
[2018-11-07 17:32] LABS: ALCOHOL, BLOOD < 3 mg/dL (0-0)
--- NOTE | 2018-11-07 17:33 | NUR ---
ICU 256
--- NOTE | 2018-11-07 18:24 | NUR ---
PT TAKEN TO RADIOLOGY VIA TERI
--- NOTE | 2018-11-07 18:35 | NUR ---
HARRIS CATHETER INSERTED PER PROTOCOL
--- NOTE | 2018-11-07 18:42 | NUR ---
Lauren casas in [facility] - 11/07/18 at 2330 by JOAN REPORT GIVEN TO DONALD AMADOR FOR ICU 256
--- NOTE | 2018-11-07 18:50 | NUR ---
URINE SENT TO STAT LAB
--- NOTE | 2018-11-07 19:40 | NUR ---
REPORT GIVEN TO DONALD AMADOR FOR ICU 256
[2018-11-07] MEDS ORDERED: ONDANSETRON HCL/PF 4 MG/2 ML VIAL IVP PRN (20:00)
[2018-11-07] MEDS ORDERED: ACETAMINOPHEN 650 MG/SUPP.RECT RC PRN (20:00)
[2018-11-07] MEDS ORDERED: ROCURONIUM BROMIDE 50 MG/5 ML IV ONE (20:05)
--- NOTE | 2018-11-07 20:47 | NUR ---
PT TRANSFERRED TO UNIT [facility]IA [facility]
[2018-11-07 21:10] LABS: APPEARANCE,URINE SL CLOUDY (CLEAR); BILIRUBIN,URINE NEGATIVE (NEGATIVE); BLOOD, URINE 2+ Ery/uL (NEGATIVE); COLOR,URINE DARK YELLO (YELLOW); KETONES,URINE NEGATIVE (NEGATIVE); LEUKOCYTE ESTERASE ,URINE NEGATIVE (NEGATIVE); NITRITE, URINE NEGATIVE (NEGATIVE); PROTEIN,URINE 2+ mg/dl (NEGATIVE); UGLUCOSE NEGATIVE (NEGATIVE); UROBILINOGEN,URINE 0.2 EU/dL (0.2)
[2018-11-07 21:17] LABS: WBC,URINE 0-2 /HPF (0-3)
[2018-11-07] MEDS: FAMOTIDINE/PF INJ 20 MG/2 ML VIAL IV SCH (21:17)
[2018-11-07 21:18] LABS: BACTERIA,URINE Few /HPF (None Seen); SPERM,URINE Moderate /HPF (None Seen); SQUAMOUS EPITHELIAL CELL,UR Few /HPF (None Seen)
[2018-11-07] MEDS: ENOXAPARIN SODIUM 40 MG/0.4 ML DISP.SYRIN SQ SCH (21:19)
[2018-11-07 21:22] LABS: ABG BASE EXCESS -0.7 mmol/L; ABG OXYGEN SATURATION 98.7 % (92.0-98.5); ABG PCO2 43.3 mmHg (35.0-45.0); ABG PH 7.373 (7.350-7.450); ABG PO2 156.2 mmHg (75.0-100.0); AaDO2 151.6 mmHg; COHb 0.8 % (0.5-1.5); MetHb 0.6 % (0.0-1.5); O2Hb 97.3 % (94.0-97.0); SITE, ABG Right Radial
[2018-11-07] MEDS ORDERED: IV NS 0.9% 1,000 ML IV ONE (21:30)
[2018-11-07] MEDS: IV NS 0.9% 1,000 ML IV SCH (21:36)
[2018-11-07] MEDS ORDERED: VANCOMYCIN 1 GM in IV D5W 250ml IV ONE (22:00)
[2018-11-07] MEDS ORDERED: VANCOMYCIN 1 GM VIAL ONE (22:03)
[2018-11-07] MEDS ORDERED: PIPERACILLIN /TAZOBACTAM 3.375 G VIAL IV ONE (22:05)
[2018-11-07] MEDS ORDERED: METRONIDAZOLE 500MG/ NS 100ML 100 ML IV ONE (22:05)
[2018-11-07] MEDS ORDERED: LEVETIRACETAM (500MG) 500 MG/5 ML VIAL IV ONE (22:24)
[2018-11-07] MEDS ORDERED: METRONIDAZOLE 500MG/ NS 100ML 500 MG in PREMIX 1 EA IV SCH (23:00)
[2018-11-07] MEDS: ZOSYN IVPB 3.375 G in IV D5W 50ml IV SCH (23:29)
[2018-11-08] VITALS (44 sets, daily range): BP systolic 94–134; BP diastolic 44–74
[2018-11-08] MEDS: PROPOFOL 100 ML IV PRN ×2 (01:03→05:54)
[2018-11-08] MEDS ORDERED: PIPERACILLIN /TAZOBACTAM 3.375 G VIAL IV ONE (04:50)
[2018-11-08 04:58] LABS: BASOPHILS % (AUTO) 0.4 % (0.0-2.0); EOSINOPHILS % (AUTO) 1.3 % (0.0-6.0); HEMATOCRIT 38 % (39-51); HEMOGLOBIN 12.6 g/dL (13.5-17.5); LYMPHOCYTES # (AUTO) 2.2 /CMM (0.8-4.8); LYMPHOCYTES % (AUTO) 18.9 % (20.0-44.0); MEAN CORPUSCULAR HGB CONC 34 g/dl (31.0-36.0); MEAN CORPUSCULAR VOLUME 91 fL (80-96); MONOCYTES # (AUTO) 1.1 /CMM (0.1-1.30); MONOCYTES % (AUTO) 9.8 % (2.0-12.0); NEUTROPHILS # (AUTO) 8.1 /CMM (1.8-8.9); NEUTROPHILS % (AUTO) 69.6 % (43.0-81.0); PLATELET COUNT (AUTO) 190 /CMM (150-450); RED BLOOD CELL COUNT(AUTO) 4.13 MIL/uL (4.5-6.0); WHITE BLOOD COUNT (AUTO) 11.6 K/uL (4.3-11.0)
[2018-11-08 05:15] LABS: THYROID STIMULATING HORMONE 1.035 uIU/mL (0.358-3.74)
[2018-11-08] MEDS: ZOSYN IVPB 3.375 G in IV D5W 50ml IV SCH (05:24)
[2018-11-08 05:25] LABS: ALBUMIN 3.1 g/dL (3.4-5.0); BILIRUBIN,TOTAL 0.6 mg/dL (0.2-1.0); CALCIUM, SERUM 8.6 mg/dL (8.5-10.1); MAGNESIUM 2.1 mg/dL (1.8-2.4); PHOSPHORUS 3.9 mg/dL (2.5-4.9); TOTAL PROTEIN, SERUM 6.6 g/dL (6.4-8.2)
--- NOTE | 2018-11-08 06:31 | NUR ---
RN NOTES 20:40 PM - ADMITTED PATIENT ORALLY INTUBATED FROM ER UNDER CHRYSTAL COAL BAGGER. DX OF STATUS EPILEPTICUS AND RESPIRATORY FAILURE. PATIENT IS ORALLY INTUBATED WITH ETT 7.5 / 21 CM AT LIP. WTH VENT SETTING OF AC 14 TV 600 FIO2 40% AND PEEP 5 TOLERATED WELL SATURATION 100%. TELE MONITOR PLACED REVEALS SR SB WITH PAC'S LOWEST 41. IV SITE ON LAC G 18 AND PLACED A NEW LINE ON RIGHT FOOT G 20 INTACT AND PATENT. SKIN ASSESSMENT DONE WITH CHARGE NURSE. HADLEY. SOFT WRIST RESTRAINT IN PLACED. PATIENT IS SEDATED WITH DIPRIVAN RECEIVED IN ER DIPRIVAN RUNNING WITH 50 MCG/KG/MIN NEREYDA COAL BAGGER IS ON THE FLOOR WITH ORDER TO INCREASED PROPOFOL UP TO MAXIMUM OF 60 MCG/KG/MIN ACKNOWLEDGED ORDER, HARRIS CATH INTACT AND PATENT. 04:00 OGT PLACED TO PATIENT WITH GURGLING SOUND, CXR DONE THIS MORNING. WILL FOLLOW UP RESULT. KEPT PT CLEAN AND DRY, BED LOCKED AND IN LOWEST POSSIBLE POSITION. PADDED SIDERAILE FOR SEIZURE PRECAUTION. O SEIZURE TROUGHUT THE SHIFT. DAWIT MONITOR FOR RESTLESS BEHAVIOR. DIPRIVAN TITRATED ORDERED.
--- NOTE | 2018-11-08 07:10 | NUR ---
RN INITIAL NOTES RECEIVED PT INTUBATED, SEDATED. NO RESPIRATORY DISTRESS NOTED. NO SIGNS OF PAIN NOTED. PT BRADYCARDIC, 40S. IV LINES IN PLACE. ON DIPRIVAN AT 50MCG/KG/HR. WILL TITRATE ACCORDINGLY. IVF INFUSING. FC IN PLACE. REPOSITIONED. WILL CLOSELY MONITOR FOR SEIZURE EPISODE
[2018-11-08] MEDS ORDERED: LEVETIRACETAM (500MG) 1,000 MG in IV NS 0.9% 100 ML IV SCH ×3 (07:52)
[2018-11-08] MEDS: FAMOTIDINE/PF INJ 20 MG/2 ML VIAL IV SCH (08:17)
[2018-11-08] MEDS ORDERED: FEE PK DOSING 1 MIN EA MC ONE ×2 (08:25→13:45)
[2018-11-08 08:41] LABS: ABG BASE EXCESS -0.8 mmol/L; ABG OXYGEN SATURATION 98.4 % (92.0-98.5); ABG PCO2 37.8 mmHg (35.0-45.0); ABG PH 7.412 (7.350-7.450); ABG PO2 133.6 mmHg (75.0-100.0); AaDO2 108.1 mmHg; COHb 0.6 % (0.5-1.5); MetHb 0.5 % (0.0-1.5); O2Hb 97.3 % (94.0-97.0); SITE, ABG Right Radial
[2018-11-08] MEDS: METRONIDAZOLE 500MG/ NS 100ML 500 MG in PREMIX 1 EA IV SCH ×3 (08:52→20:13)
[2018-11-08] MEDS ORDERED: VANCOMYCIN 1 GM in IV D5W 250 ML IV SCH (10:00)
[2018-11-08] MEDS: VANCOMYCIN 1 GM in IV D5W 250 ML IV SCH ×2 (10:16→21:22)
[2018-11-08] MEDS: LEVETIRACETAM (500MG) 1,000 MG in IV NS 0.9% 100 ML IV SCH ×2 (10:16→20:13)
--- NOTE | 2018-11-08 10:30 | NUR ---
RN NOTES 09 SEEN AND EXAMINED BY DR ANGULO. PT OFF SEDATION SINCE 0900. PT OPEN EYES ON VERBAL AND TACTILE STIMULI. NO SEIZURE EPISODE NOTED. PER MD, KEEP OFF SEDATION UNTIL FULLY AWAKE. WILL CLOSELY MONITOR 1000 SEEN AND EXAMINED [address] DR SOLANO. [facility] AND CXR RESULT. PT OFF SEDATION. NO SEIZURE EPISODE NOTED. AWAITING NEURO CONSULT. WILL MONITOR.
[2018-11-08] MEDS: IV NS 0.9% 1,000 ML IV SCH (11:31)
[2018-11-08] MEDS: PIPERACILLIN /TAZOBACTAM 3.375 G in IV D5W 50 ML IV SCH ×3 (12:09→23:15)
[2018-11-08 13:11] LABS: ABG BASE EXCESS -1.2 mmol/L; ABG OXYGEN SATURATION 97.5 % (92.0-98.5); ABG PCO2 37.5 mmHg (35.0-45.0); ABG PH 7.408 (7.350-7.450); ABG PO2 103.4 mmHg (75.0-100.0); AaDO2 138.7 mmHg; COHb 0.5 % (0.5-1.5); MetHb 0.2 % (0.0-1.5); O2Hb 96.8 % (94.0-97.0); SITE, ABG Right Radial
--- NOTE | 2018-11-08 13:20 | NUR ---
RN NOTES ABG RESULT RELAYED TO DR ANGULO. PT EXTUBATED. PLACED ON 02 VIA NC AT 2LPM. HOB ELEVATED. NO RESPIRATORY DISTRESS NOTED. NO SOB NOTED. WILL CLOSELY MONITOR.
--- NOTE | 2018-11-08 13:29 | NUR ---
PER DR ANGULO PATIENT WAS WEANED AND EXTUBATED AND PLACED ON 2L N/C CHIQUIS WELL. NO SOB REPORTED.
[2018-11-08] MEDS ORDERED: ATROPINE SULFATE 1 MG/10 ML DISP.SYRIN IV ONE (13:45)
--- NOTE | 2018-11-08 18:00 | NUR ---
RN NOTES PT NOTED WITH OUTBURST, YELLING, STATING THAT HE WANTS TO KILL HIMSELF. INDEX FINGER POINTING ON FOREHEAD LIKE A GUN AND SAYING TO PULL THE TRIGGER AND KILL ME. PT TRYING TO GET OUT OF BED. PT KEPT SAFE AND COMFORTABLE. PT HAS HISTORY OF SCHIZO AND BIPOLAR. ENCOURAGED VERBALIZATION OF FEELINGS. PT NOT CONSISTENT WITH ANSWERS UPON FURTHER QUESTIONING. PT'S LAST STATEMENT IS " HE DOESN'T WANT TO KILL HIMSELF AND PT DOESN'T KNOW WHY IM ASKING QUESTIONS LIKE THAT". DR SOLANO NOTIFIED AND ORDERED PSYCH CONSULT AND 1:1 SITTER. WILL CLOSELY MONITOR.
--- NOTE | 2018-11-08 18:49 | NUR ---
RN CLOSING NOTES PT A/OX1-2, WITH PERIODS OF CONFUSION AND PERIODS OF HALLUCINATION, TALKING TO HIMSELF. ON 02 VIA NC. HOB ELEVATED. NO RESPIRATORY DISTRESS NOTED. NO SOB NOTED. DENIES ANY PAIN. KEPT CLEAN AND DRY. PT REPOSITIONED. NO SEIZURE NOTED. KEPT SAFE AND COMFORTABLE. NO OUTBURST NOTED AT THIS MOMENT. WILL ENDORSE FOR CONTINUITY OF CARE.
[2018-11-08] MEDS: ENOXAPARIN SODIUM 40 MG/0.4 ML DISP.SYRIN SQ SCH (20:20)
[2018-11-09] VITALS (24 sets, daily range): BP systolic 98–145; BP diastolic 47–79
[2018-11-09] MEDS: IV NS 0.9% 1,000 ML IV SCH (00:47)
[2018-11-09] MEDS: METRONIDAZOLE 500MG/ NS 100ML 500 MG in PREMIX 1 EA IV SCH ×2 (04:55→13:20)
[2018-11-09 04:59] LABS: BASOPHILS # (AUTO) 0.1 /CMM (0.0-0.2); BASOPHILS % (AUTO) 0.4 % (0.0-2.0); EOSINOPHILS % (AUTO) 2.2 % (0.0-6.0); HEMATOCRIT 38 % (39-51); HEMOGLOBIN 12.7 g/dL (13.5-17.5); LYMPHOCYTES # (AUTO) 1.8 /CMM (0.8-4.8); LYMPHOCYTES % (AUTO) 14.5 % (20.0-44.0); MEAN CORPUSCULAR HGB CONC 34 g/dl (31.0-36.0); MEAN CORPUSCULAR VOLUME 91 fL (80-96); MONOCYTES # (AUTO) 0.9 /CMM (0.1-1.30); MONOCYTES % (AUTO) 7.1 % (2.0-12.0); NEUTROPHILS # (AUTO) 9.7 /CMM (1.8-8.9); NEUTROPHILS % (AUTO) 75.8 % (43.0-81.0); PLATELET COUNT (AUTO) 159 /CMM (150-450); RED BLOOD CELL COUNT(AUTO) 4.13 MIL/uL (4.5-6.0); WHITE BLOOD COUNT (AUTO) 12.8 K/uL (4.3-11.0)
[2018-11-09 05:26] LABS: CALCIUM, SERUM 8.6 mg/dL (8.5-10.1); MAGNESIUM 1.9 mg/dL (1.8-2.4); PHOSPHORUS 2.3 mg/dL (2.5-4.9); POTASSIUM 3.4 mmol/L (3.5-5.1)
[2018-11-09] MEDS: PIPERACILLIN /TAZOBACTAM 3.375 G in IV D5W 50 ML IV SCH ×3 (05:52→18:09)
--- NOTE | 2018-11-09 07:15 | NUR ---
ADMINISTRATIVE SERVICES ASSISTANT NOTES RECEIVED BEDSIDE REPORT SITTER AT BEDSIDE. PATIENT A/O X 1-2 SPEAKING TO SELF. NO SIGNS OR SYMPTOMS OF RESPIRATORY DISTRESS ON 2 LTRS NASAL CANNULA. NO COMPLAINTS OF PAIN. PATIENT SINUS RYAN 45-47 ON MONITOR ASYMPTOMATIC. IVF NS RUNNING TO LAC # 18 GAUGE @ 75 ML/HR. HARRIS CATH PATENT AND DRAINING CLEAR YELLOW URINE. SAFETY PRECAUTIONS IN PLACE BED IN LOW POSITION WILL CONT TO MONITOR ACCORDINGLY
[2018-11-09] MEDS: LEVETIRACETAM (500MG) 1,000 MG in IV NS 0.9% 100 ML IV SCH ×2 (09:21→20:14)
[2018-11-09] MEDS: FAMOTIDINE/PF INJ 20 MG/2 ML VIAL IV SCH (09:31)
[2018-11-09] MEDS: VANCOMYCIN 1 GM in IV D5W 250 ML IV SCH (10:02)
--- NOTE | 2018-11-09 10:21 | NUR ---
GRAY TENDER NOTES. SPEECH THERAPIST AT BEDSIDE PATIENT TOLERATING CLEAR LIQUIDS AND APPLE SAUCE. ORDERS FOR DIET OBTAINED.SOFT DIET D/T PATIENT HAS NO TEETH
[2018-11-09] MEDS ORDERED: Sodium Phosphate 15 MMOL in IV D5W 250 ML IV ONE (11:00)
[2018-11-09] MEDS: POTASSIUM CL. PREMIX PERIPHER. 50 ML IV SCH ×2 (11:03→12:13)
--- NOTE | 2018-11-09 13:37 | NUR ---
ANNEALING TORCH OPERATOR NOTES REPORT GIVEN TO MARCELLA BENNETT FOR TRANSFER TO BED 113-2 TELE FIRST FLOOR
--- NOTE | 2018-11-09 14:00 | NUR ---
SURVEY PARTY CHIEF NOTES PATIENT RECEIVED ALERT AND ORIENTED X4. NO RESPIRATORY DISTRESS NOTED. NO C/O PAIN AT THIS TIME. SKIN WARM TO TOUCH, IV ACCESS SITES ON THE LAC AND THE RT FOOT INTACT AND PATENT, NO REDNESS, NO INFILTRATION NOTED. IV NS INFUSING ON THE LAC AT 75ML/HR. GRAIN DISTRIBUTOR ON PATIENT, SINUS RYAN 45-50 HR, MD AWARE. F/C DRAINING CLEAR GUILLERMO URINE. PATIENT'S NEEDS ATTENDED. ALL ORDERS CARRIED OUT. BED ON LOWEST LOCKED POSITION, CALL LIGHT WITHIN REACH. WILL CONTINUE TO MONITOR.
--- NOTE | 2018-11-09 18:15 | NUR ---
ENERGY ECONOMIST NOTES PATIENT IN NO RESPIRATORY DISTRESS, NO C/O PAIN AT THIS TIME. IV ACCESS SITES INTACT AND PATENT. PATIENT'S NEEDS ATTENDED. BED ON LOWEST LOCKED POSITION, CALL LIGHT WITHIN REACH. WILL ENDORSE TO ONCOMING NURSE.
--- NOTE | 2018-11-09 19:58 | NUR ---
TELE/RN OPENING NOTES RECEIVED PATIENT IN BED, AWAKE, ALERT X3 ABLE TO VERBALIZE NEEDS,REQUIRE FREQUENT REORIENTATION AND REMINDER, INSTRUCTED TO KEEP OXYGEN ON. SKIN WARM TO TOUCH, RESPIRATIONS EVEN AND UNLABORED, WITH SITTER FOR MONITORNF FOR AND S/S OF CHANGES. ON TELE AT SR, WITH HARRIS CATHETER DRAINING GUILLERMO COLORED URINE, NOTED DOISCOLORATION ON LEGD, AND RIGHT HAND. ON MECHANICAL SOFT DIET, POTASSIUM REPLACED, WILL FOLLOW UP LABS IN MORNING. BED LOCKED, CALL LIGHTS WITHIN REACH. WILL MONITOR.
--- NOTE | 2018-11-09 20:14 | NUR ---
TELE/RN NOTES PATIENT TELE READING AT SINUS RYAN OF 50, AWAKE, ALERT. IV KEPPRA 500MG/ML AT 220 ML/HR INFUSING TO MONITOR FOR ANY CHANGES. SAFETY PREVENTION, SITTER AT BEDSIDE.
[2018-11-09] MEDS: ENOXAPARIN SODIUM 40 MG/0.4 ML DISP.SYRIN SQ SCH (20:16)
[2018-11-09] MEDS: QUETIAPINE FUMARATE 100 MG TABLET PO SCH (21:55)
--- NOTE | 2018-11-09 23:00 | NUR ---
TELE/RN NOTES SPUTUM TO COLLECT, UNABLE TO COLLECT SPUTUM FROM PATIENT AT THIS TIME. RT WAS INFORMED.
[2018-11-10] VITALS: BP 110/62
[2018-11-10 04:00] VITALS: BP 110/62
--- NOTE | 2018-11-10 05:41 | NUR ---
TELE/RN NOTES PATIENT COMFORTABLE, APPLIED MEPILEX ON SACRAL AREA FOR REDNESS, ABLE TO COOPERATE WITH CARE. TO MONITOR.
--- NOTE | 2018-11-10 05:53 | NUR ---
TELE/RN NOTES PATIENT UNABLE TO COUGH OUT SPUTUM RT MADE AWARE, PATIENT MOUTH DRY
--- NOTE | 2018-11-10 07:02 | NUR ---
MS/RN NOTES'' PATIENT SLEP FEW HOURS, ABLE TO COOPERATE WITH CARE, REPOSITION FOR COMFORT, .WILL ENDORSE TO AM RN FOR MENDEZ,
[2018-11-10 07:26] LABS: BASOPHILS % (AUTO) 0.4 % (0.0-2.0); EOSINOPHILS % (AUTO) 4.3 % (0.0-6.0); HEMATOCRIT 40 % (39-51); HEMOGLOBIN 13.2 g/dL (13.5-17.5); LYMPHOCYTES % (AUTO) 27.8 % (20.0-44.0); MEAN CORPUSCULAR HGB CONC 33 g/dl (31.0-36.0); MEAN CORPUSCULAR VOLUME 90 fL (80-96); MONOCYTES # (AUTO) 0.7 /CMM (0.1-1.30); MONOCYTES % (AUTO) 9.7 % (2.0-12.0); NEUTROPHILS # (AUTO) 4.1 /CMM (1.8-8.9); NEUTROPHILS % (AUTO) 57.8 % (43.0-81.0); PLATELET COUNT (AUTO) 153 /CMM (150-450); WHITE BLOOD COUNT (AUTO) 7.2 K/uL (4.3-11.0)
[2018-11-10 07:44] LABS: CALCIUM, SERUM 8.6 mg/dL (8.5-10.1); CREATININE 0.9 mg/dL (0.6-1.3); PHOSPHORUS 2.4 mg/dL (2.5-4.9); POTASSIUM 3.7 mmol/L (3.5-5.1)
--- NOTE | 2018-11-10 07:55 | NUR ---
ALL ROUND BUTCHER NOTES RECEIVED BEDSIDE REPORT SITTER AT BEDSIDE. PATIENT A/O X3 SPEAKING TO SELF. NO SIGNS OR SYMPTOMS OF RESPIRATORY DISTRESS ON 2 LTRS NASAL CANNULA. NO COMPLAINTS OF PAIN. PATIENT SINUS RYAN 45-47 ON MONITOR ASYMPTOMATIC. IVF NS RUNNING TO LAC # 18 GAUGE @ 75 ML/HR. HARRIS CATH PATENT AND DRAINING CLEAR YELLOW URINE. SAFETY PRECAUTIONS IN PLACE BED IN LOW POSITION WILL CONT TO MONITOR ACCORDINGLY
[2018-11-10 08:00] VITALS: BP 129/66
[2018-11-10] MEDS: LEVETIRACETAM (500MG) 1,000 MG in IV NS 0.9% 100 ML IV SCH (08:54)
[2018-11-10] MEDS: FAMOTIDINE/PF INJ 20 MG/2 ML VIAL IV SCH (08:54)
[2018-11-10] MEDS: IV NS 0.9% 1,000 ML IV PRN (09:40)
[2018-11-10 12:00] VITALS: BP 121/70
[2018-11-10] MEDS ORDERED: NEUTRA PHOS 1 POWD.PACKET PO ONE (12:30)
--- NOTE | 2018-11-10 13:54 | NUR ---
REMOVED IV # 20 GAUGE IN LAC D/T DISLODGED
[2018-11-10] MEDS: LORAZEPAM INJ 2 MG/ML VIAL IV PRN (14:33)
--- NOTE | 2018-11-10 14:36 | NUR ---
OPTIONS TRADER NOTES PATIENT HAD 1X SEIZURE WHILE IN BED LASTING APPROXIMATELY 1 MINUTE. ATIVAN GIVEN STAYED WITH PATIENT NO INJURY NOTED. PATIENT A/O X3
--- NOTE | 2018-11-10 14:44 | NUR ---
SPOKE WITH DR BAUMAN AND INFORMED HIM THAT PATIENT HAD SEIZURE. HE SAID TO INFORM DR RAYMOND. WILL CONTACT NEUROLOGIST
--- NOTE | 2018-11-10 15:30 | NUR ---
SPOKE WITH DR CLMEENTE IN REGARDS TO PATIENT SEIZURE. ORDERS TO GIVE ONE DOSE OF KEPPRA 500 MG NOW AND INCREASE KEPPRA TO 1500 MG BID. ORDERS FOLLOWED THROUGH
[2018-11-10] MEDS ORDERED: LEVETIRACETAM SOL (5 ML) 100 MG/ML UDC PO STA (15:45)
[2018-11-10 16:00] VITALS: BP 121/79
--- NOTE | 2018-11-10 18:49 | NUR ---
CASH MANAGEMENT CLERK NOTES PATIENT A/O X4 WITH HALLUCINATIONS. SITTER AT BEDSIDE NO SIGNS OR SYMPTOMS OF RESPIRATORY DISTRESS ON 2 LTRS NASAL CANNULA OR ACUTE PAIN. 1X EPISODE OF SEIZURE SEE NURSES NOTES. APPETITE GOOD NO NAUSEA OR VOMITING. OOB WITH PT TOLERATED WELL SEE PT NOTES. IVF RUNNING TO RIGHT HAND # 20 NS @75 ML/HR RIGHT FOOT # 20 SALINE LOCK HARRIS CATH DRAINING CLEAR YELLOW URINE ABLE TO MAKE NEEDS KNOWN AND ALL MET. BED IN LOW POSITION. SAFETY AND ASPIRATION PRECAUTIONS IN PLACE.CALL LIGHT WITHIN REACH
--- NOTE | 2018-11-10 19:30 | NUR ---
AUDIO VISUAL DESIGN ENGINEER NOTES PATIENT A/O X4 NO SOB NOTED. . SITTER AT BEDSIDE NO SIGNS OR SYMPTOMS OF RESPIRATORY DISTRESS ON 2 LTRS NASAL CANNULA OR ACUTE PAIN. 1X EPISODE OF SEIZURE SEE NURSES NOTES. APPETITE GOOD NO NAUSEA OR VOMITING. OOB WITH PT TOLERATED WELL SEE PT NOTES. IVF RUNNING TO RIGHT HAND # 20 NS @75 ML/. BED IN LOW POSITION. SAFETY AND ASPIRATION PRECAUTIONS IN PLACE.CALL LIGHT WITHIN REACH WILL CONTINUE TO MONITER
[2018-11-10 20:00] VITALS: BP 130/63
[2018-11-10] MEDS ORDERED: LEVETIRACETAM SOL (5 ML) 100 MG/ML UDC PO SCH (21:00)
[2018-11-10] MEDS: LEVETIRACETAM SOL (5 ML) 100 MG/ML UDC PO SCH (22:27)
[2018-11-10] MEDS: QUETIAPINE FUMARATE 100 MG TABLET PO SCH (22:27)
[2018-11-10] MEDS: ENOXAPARIN SODIUM 40 MG/0.4 ML DISP.SYRIN SQ SCH (22:29)
[2018-11-11] VITALS: BP 131/60
--- NOTE | 2018-11-11 00:52 | NUR ---
SALT WASHER NOTES PATIENT A/O X4 NO SOB NOTED. . SITTER AT BEDSIDE NO SIGNS OR SYMPTOMS OF RESPIRATORY DISTRESS ON 2 LTRS NASAL CANNULA OR ACUTE PAIN. 1X EPISODE OF SEIZURE SEE NURSES NOTES. APPETITE GOOD NO NAUSEA OR VOMITING. OOB WITH PT TOLERATED WELL SEE PT NOTES. IVF RUNNING TO RIGHT HAND # 20 NS @75 ML/. BED IN LOW POSITION. SAFETY AND ASPIRATION PRECAUTIONS IN PLACE.CALL LIGHT WITHIN REACH WILL CONTINUE TO MONITER
[2018-11-11 05:34] VITALS: BP 131/72
[2018-11-11 06:34] LABS: CALCIUM, SERUM 8.3 mg/dL (8.5-10.1); CREATININE 0.7 mg/dL (0.6-1.3); POTASSIUM 3.8 mmol/L (3.5-5.1)
--- NOTE | 2018-11-11 06:50 | NUR ---
FOREST PATROLMAN\ CLOSING NOTES PATIENT A/O X4 NO SOB NOTED. . SITTER AT BEDSIDE NO SIGNS OR SYMPTOMS OF RESPIRATORY DISTRESS ON 2 LTRS NASAL CANNULA OR ACUTE PAIN. NO EPISODES OF SEIZURE DURING MY SHIFT.. APPETITE GOOD ALL NEEDS MET. BED IN LOW POSITION. SAFETY AND ASPIRATION PRECAUTIONS IN PLACE.CALL LIGHT WITHIN REACH WILL ENDORSE TO AM NURSE TO MENDEZ.
--- NOTE | 2018-11-11 07:43 | NUR ---
RN NOTE: PATIENT RECEIVED ALERT AWAKE ORIENTED X 3. NO BREATHING DISTRESS NOTED. DENIES PAIN/DISCOMFORT. SEIZURE/ASPIRATION PRECAUTIONS OBSERVED. IV INTACT, RUNNING WITH IV FLUIDS. F/C INTACT, DRAINING WELL WITH GRAVITY. SAFETY MEASURES OBSERVED. CONTINUE WITH PLAN OF CARE.
[2018-11-11 08:00] VITALS: BP 109/62
[2018-11-11] MEDS: IV NS 0.9% 1,000 ML IV PRN ×2 (08:20→21:25)
[2018-11-11] MEDS: FAMOTIDINE/PF INJ 20 MG/2 ML VIAL IV SCH (08:20)
[2018-11-11] MEDS: LEVETIRACETAM SOL (5 ML) 100 MG/ML UDC PO SCH ×2 (08:20→20:46)
[2018-11-11 16:00] VITALS: BP 128/67
--- NOTE | 2018-11-11 19:10 | NUR ---
MS RN OPENING NOTES PATIENT IN BED, A/OX3, PT SPEAKING TO HIMSELF AND STATED "DO NOT ASK ME STUPID QUESTIONS IF YOU ALREADY KNOW THE ANSWER." SITTER AT BEDSIDE FOR PT SAFETY. NO SIGNS OR SYMPTOMS OF RESPIRATORY DISTRESS NOTED. DENIES ANY PAIN. ON 2 LTRS NASAL CANNULA, SATURATING 96%. IVF RUNNING TO RIGHT HAND #20 NS @75 ML/HR RIGHT FOOT #20 SALINE LOCK, BOTH FLUSHING AND PATENT. HARRIS CATH NOTED. BED LOCKED AND IN LOWEST POSITION. SIDE RAILS UP X2 AND PADDED. SAFETY AND ASPIRATION PRECAUTIONS IN PLACE. CALL LIGHT WITHIN REACH. WILL CONT TO MONITOR CLOSELY. PER REPORT PATIENT HR BASELINE IS 40S. WILL CONT TO MONITOR HR.
[2018-11-11 20:00] VITALS: BP 111/70
[2018-11-11] MEDS: ENOXAPARIN SODIUM 40 MG/0.4 ML DISP.SYRIN SQ SCH (20:46)
[2018-11-11] MEDS: QUETIAPINE FUMARATE 100 MG TABLET PO SCH (21:05)
[2018-11-11] MEDS ORDERED: diphenhydrAMINE HCL 25 MG CAPSULE PO PRN (23:00)
--- NOTE | 2018-11-12 02:30 | NUR ---
MS RN NOTES PATIENT REFUSES OXYGEN VIA NASAL CANNULA. SATURATING 94% ON RA. DENIES SOB. RR EVEN AND UNLABORED. WILL CONT TO MONITOR.
[2018-11-12 04:00] VITALS: BP 124/69
[2018-11-12 06:56] LABS: CALCIUM, SERUM 8.9 mg/dL (8.5-10.1); CREATININE 0.8 mg/dL (0.6-1.3); POTASSIUM 4.1 mmol/L (3.5-5.1)
--- NOTE | 2018-11-12 07:32 | NUR ---
MS RN CLOSING NOTES PATIENT IN BED, A/OX3, SITTER AT BEDSIDE FOR PT SAFETY. ON RA, NO SIGNS OR SYMPTOMS OF RESPIRATORY DISTRESS NOTED. DENIES ANY PAIN. IVF RUNNING TO RIGHT HAND #20 NS @75 ML/HR, RIGHT FOOT #20 SALINE LOCK, BOTH FLUSHING AND PATENT. HARRIS CATH NOTED AND OFF THE FLOOR. BED LOCKED AND IN LOWEST POSITION. SIDE RAILS UP X2 AND PADDED. SAFETY AND ASPIRATION PRECAUTIONS IN PLACE. CALL LIGHT WITHIN REACH. ALL MD ORDERS ATTENDED. ALL NEEDS ANTICIPATED AND MET. WILL ENDORSE TO AM RN FOR MENDEZ.
[2018-11-12 08:00] VITALS: BP 122/74
[2018-11-12] MEDS: LORAZEPAM INJ 2 MG/ML VIAL IV PRN ×2 (10:39→20:02)
[2018-11-12] MEDS: FAMOTIDINE/PF INJ 20 MG/2 ML VIAL IV SCH (10:39)
[2018-11-12] MEDS: LEVETIRACETAM SOL (5 ML) 100 MG/ML UDC PO SCH ×2 (10:40→22:05)
[2018-11-12] MEDS: IV NS 0.9% 1,000 ML IV PRN ×2 (11:28→22:37)
[2018-11-12 12:00] VITALS: BP 120/74
[2018-11-12 15:32] VITALS: BP 118/71
--- NOTE | 2018-11-12 19:15 | NUR ---
RN MS OPENING NOTES RECEIVED PATIENT IN BED AWAKE ALERT AND ORIENTED X3, RESPIRATIONS EVEN AND UNLABORED WITH EQUAL RISE AND FALL OF CHEST, DENIES ANY PAIN OR DISCOMFORT AT THIS TIME, S/P HARRIS CATHETER REMOVAL WILL CONTINUE TO MONITOR FOR URINE OUTPUT URINAL OFFERED, SITTER AT BEDSIDE, IV SITE TO RIGHT FOOT #20 G INTACT AND PATENT SL, RIGHT FA #20 G INTACT AND PATENT, IVF RUNNING ORDERED, ORIENTED TO STAFF AND CALL LIGHT. SAFETY PRECAUTIONS IN PLACE, LOW BED AND LOCKED WILL CONTINUE TO MONITOR AND ATTEND TO NEEDS.
--- NOTE | 2018-11-12 19:30 | NUR ---
patient remain stable , no acute distress , no sz activity noted durning the shift , pt is afebrile , Ocampo catheter was dc at 1930 , pt is due to void , will endorse to night nurse
--- NOTE | 2018-11-12 19:40 | NUR ---
RN MS NOTES PATIENT NOTED YELLING, AGITATED , VERBALLY AGGRESSIVE, ATTEMPTED TO REDIRECT WITH SITTER, PATIENT ATTEMPTING TO GET OUT OF BED. PATIENT REFUSING AT THIS TIME, 1950 CODE MARTI CALLED PATIENT IS STRIKING STAFF, THROWING MATERIALS IN ROOM, ATTEMPTING TO REMOVE IV LINES AND TUBING, YELLING AT STAFF, PUSHING BEDSIDE TABLE. PATIENT SAFELY PLACED BACK IN BED.
[2018-11-12 20:00] VITALS: BP 119/69
--- NOTE | 2018-11-12 20:02 | NUR ---
RN MS NOTES ATIVAN PRN GIVEN ORDERED FOR AGITATION AND AGGRESSIVE BEHAVIOR. NOTIFIED HOSPITALIST NEW ORDER FRO SOFT BILATERAL WRIST RESTRAINTS. PLACED. SITTER AT BEDSIDE.
--- NOTE | 2018-11-12 20:54 | NUR ---
RN MS NOTES NOTIFIED HOSPITALIST DESPITE ATIVAN GIVEN PATIENT IS STILL AGGRESSIVE STRIKING AT STAFF, NEW ORDER READ BACK AND CARRIED OUT [id number] IM AND ZYPREXA 5MG IM. WILL CONTINUE TO MONITOR BEHAVIOR.
[2018-11-12] MEDS ORDERED: diphenhydrAMINE HCL 50 MG/ML VIAL IM ONE (21:00)
[2018-11-12] MEDS ORDERED: OLANZAPINE 10 MG VIAL IM ONE (21:00)
--- NOTE | 2018-11-12 21:30 | NUR ---
RN MS NOTES PATIENT AT THIS REDIRECTED WITH SNACKS, AND MILK WILL CONTINUE TO MONITOR AN HOLD OFF ON IM. REMAINS CALM AT THIS TIME.
[2018-11-12] MEDS ORDERED: QUETIAPINE FUMARATE 100 MG TABLET ONE (22:10)
[2018-11-12] MEDS: QUETIAPINE FUMARATE 100 MG TABLET PO SCH (22:15)
[2018-11-12] MEDS: ENOXAPARIN SODIUM 40 MG/0.4 ML DISP.SYRIN SQ SCH (22:16)
[2018-11-13 04:00] VITALS: BP 109/70
--- NOTE | 2018-11-13 06:42 | NUR ---
RN MS CLOSING NOTES PATIENT IN BED SLEEPING BUT EASILY AROUSABLE AWAKE ALERT AND ORIENTED X3, RESPIRATIONS EVEN AND UNLABORED WITH EQUAL RISE AND FALL OF CHEST,REFUSED TO HAVE [address] STATES " I DONT NEED IT IM NOT SHORT OF BREATH", NO SOB PRESENT SPO2 WNL,DENIES ANY PAIN OR DISCOMFORT AT THIS TIME, S/P HARRIS CATHETER REMOVAL ABLE TO VOID VIA URINAL 1250 URINE YELLOW CLEAR, WRIST RESTRAINTS RELEASED SKIN INTACT, PULSES PALPABLE REMAINS CALM AT THIS TIME, WOUND CARE CONSULT FOR LEFT AND RIGHT BUTTOCKS, SITTER AT BEDSIDE, IV SITE TO RIGHT FOOT #20 G INTACT AND PATENT SL, RIGHT FA #20 G INTACT AND PATENT, IVF RUNNING ORDERED, FLUIDS AND SNACKS OFFERED THROUGHOUT SHIFT,CALL LIGHT KEPT WITHIN REACH. SAFETY PRECAUTIONS IN PLACE, LOW BED AND LOCKED WILL CONTINUE TO MONITOR AND ATTEND TO NEEDS AND ENDORSE TO NEXT SHIFT. IM BENADRYL AND ZYPREXA NOT GIVEN PATIENT REMAINED CALM REMAINING OF SHIFT, SLEPT WELL. NO SEIZURE ACTIVITY THROUGHOUT SHIFT.
[2018-11-13 07:46] LABS: CREATININE 0.8 mg/dL (0.6-1.3); POTASSIUM 3.6 mmol/L (3.5-5.1)
[2018-11-13 08:00] VITALS: BP 115/55
--- NOTE | 2018-11-13 08:00 | NUR ---
m/s spark tester: initial assessment received pt in bed awake, a/ox2-3. pt is cooperative and calm. niyah wrist restraint off. having breakfast at this time. sitter at bedside. no c/o pain or any discomfort. instructed to call for assistance. will continue to monitor.
[2018-11-13] MEDS: LEVETIRACETAM SOL (5 ML) 100 MG/ML UDC PO SCH ×2 (08:48→21:19)
--- NOTE | 2018-11-13 09:02 | NUR ---
WOUND CARE CONSULT: PT PRESENTS WITH AREAS OF REDNESS TO OUTER BUTTOCKS, PRESENT ON ADMISSION, UNKNOWN ETIOLOGY. BRUISES AND DRY ABRASIONS ALSO NOTED TO BE PRESENT ON ADMISSION. PT CONTINENT AND ABLE TO ASSIST WITH REPOSITIONING IN BED. RECOMMENDATIONS MADE FOR SKIN PROTECTION. DISCUSSED WITH NURSING STAFF. WILL SEE PRN. CURRENT DHIRAJ SCORE IS 22. Addendum: 11/13/18 at 0905 by DEVANG BENITEZ WNDNU Amended: Links added.
--- NOTE | 2018-11-13 09:20 | NUR ---
m/s molder offbearer: psych f/u seen and examined by dr. salazar. per dr. salazar if pt is medically clear, i will accept him, just call intake as stated. cn made aware.
[2018-11-13] MEDS ORDERED: Z GUARD REMEDY 2 OZ OINT TP PRN (09:30)
--- NOTE | 2018-11-13 10:00 | NUR ---
m/s poultry helper: notes pt showered and has been off restraint since breakfast. sitter on standby by the shower room.
[2018-11-13] MEDS: FAMOTIDINE/PF INJ 20 MG/2 ML VIAL IV SCH (10:20)
[2018-11-13] MEDS: QUETIAPINE FUMARATE 25 MG TABLET PO SCH ×2 (10:22→16:27)
--- NOTE | 2018-11-13 12:00 | NUR ---
m/s signal timer: notes lunch served. sitter remains at bedside. restraints remains off. pt calm and cooperative. sitter at bedside.
[2018-11-13] MEDS ORDERED: LEVE100S PO (13:48)
[2018-11-13] MEDS ORDERED: QUET25TA PO (13:48)
[2018-11-13] MEDS ORDERED: QUET100T PO (13:48)
--- NOTE | 2018-11-13 14:00 | NUR ---
m/s shipyard supervisor: md visit seen by dr. pleitez with order to discharge/transfer to [facility]. order acknowledged. cn called intake. pt medically clear for discharge per md and dr. salazar (psychiatrist) accepting doctor.
--- NOTE | 2018-11-13 15:30 | NUR ---
m/s mica plate layer: notes joni (intake) called and pt will not go to [facility] and needs a f/u with case management for discharge planning per thaddeus (housekeeper cleaning cooking). spoke to [facility] case management and looking for placement.
[2018-11-13 16:00] VITALS: BP 123/69
--- NOTE | 2018-11-13 16:00 | NUR ---
m/s post closing specialist: pulmo f/u seen by dr. camacho at this time.
--- NOTE | 2018-11-13 17:17 | NUR ---
m/s glass pulverizer equipment operator: notes pt sounds asleep. no distress noted. sitter remains at bedside. will continue to monitor.
--- NOTE | 2018-11-13 17:40 | NUR ---
m/s automobile rental clerk: notes dinner served. hob elevated. sitter remains at bedside. no c/o pain or any discomfort. instructed to call for assistance. will continue to monitor.
[2018-11-13] MEDS: IV NS 0.9% 1,000 ML IV PRN (18:06)
--- NOTE | 2018-11-13 19:00 | NUR ---
m/s cutter operator brick: notes report given to ruthie (rn) for continuity of care. sitter remains at bedside. needs attended.
--- NOTE | 2018-11-13 19:30 | NUR ---
MS/RN NOTES RECEIVED PATIENT IN BED RESTING COMFORTABLY AT THIS TIME. NO S/S OF ACUTE DISTRESS NOTED. RESPIRATION EVEN AND UNLABORED. NO SOB NOTED. PATIENT ALERT AND ORIENTED X2. NO S/S OF PAIN OR DISCOMFORT NOTED AT THIS TIME. SITTER AT THE BED SIDE. IV SITE ON RFA NOTED WITH NO S/S OF INFECTION, INFILTRATION. WILL CONTINUE TO MONITOR PATIENT PER PLAN OF CARE. SAFETY PRECAUTIONS IN PLACE, BED RAILS ARE PADDED DUE TO SEIZURE EPISODE. WILL CONTINUE TO MONITOR PATIENT PER PLAN OF CARE. KEPT CLEAN AND DRY. CALL LIGHT WITHIN REACH.
[2018-11-13 20:00] VITALS: BP 113/60
[2018-11-13] MEDS: QUETIAPINE FUMARATE 100 MG TABLET PO SCH (21:20)
[2018-11-13] MEDS: ENOXAPARIN SODIUM 40 MG/0.4 ML DISP.SYRIN SQ SCH (21:21)
[2018-11-14 04:00] VITALS: BP 115/69
[2018-11-14 06:36] LABS: CALCIUM, SERUM 8.8 mg/dL (8.5-10.1); CREATININE 0.9 mg/dL (0.6-1.3); POTASSIUM 3.9 mmol/L (3.5-5.1)
--- NOTE | 2018-11-14 06:40 | NUR ---
MS/RN NOTES PATIENT REMAINED IN STABLE CONDITION, NO S/S OF ACUTE DISTRESS NOTED. RESPIRATION EVEN AND UNLABORED. NO SOB NOTED. NO S/S OF PAIN OR DISCOMFORT NOTED. IV SITES NOTED WITH NO S/S OF INFECTION INFILTRATION. ALL NEEDS ATTENDANT, ALL MEDS GIVEN ORDERED. PATIENT TOLERATED WELL. WILL ENDORSE TO THE AM SHIFT NURSE FOR MENDEZ. SAFETY MAINTAINED, BED AT THE LOWEST POSITION, LOCKED. CALL LIGHT WITHIN REACH. KEPT CLEAN AND DRY.
--- NOTE | 2018-11-14 07:30 | NUR ---
RN AM SHIFT NOTE PATIENT IN BED RESPONSIVE X2. COOPERATIVE IN CARE, TAKING MEDICATION BUT VERY AGITATED AND RAMBLING. GAVE PRN MEDICATION FOR AGITATION, WAS EFFECTIVE AND IS CALM. PATIENT SIDE RAILS UP, SITTER BY BEDSIDE, VITALS STABLE WNL. IV PATENT AND INTACT. PSYCH MD CAME BY AND WROTE ORDER FOR CASE MANAGMENT FOR PLACEMENT, PATIENT DOES NOT QUALIFY FOR PSYCH FLOOR ACCORDING TO MD, MUST LOOK FOR PROPER PLACMENT.
[2018-11-14] MEDS: QUETIAPINE FUMARATE 25 MG TABLET PO SCH ×2 (08:50→16:51)
[2018-11-14] MEDS: LORAZEPAM INJ 2 MG/ML VIAL IV PRN ×2 (08:51→20:07)
[2018-11-14] MEDS: LEVETIRACETAM SOL (5 ML) 100 MG/ML UDC PO SCH ×2 (08:51→21:51)
[2018-11-14] MEDS: FAMOTIDINE/PF INJ 20 MG/2 ML VIAL IV SCH (09:05)
[2018-11-14 12:00] VITALS: BP 123/64
[2018-11-14 20:00] VITALS: BP 118/74
--- NOTE | 2018-11-14 20:00 | NUR ---
MS RN NOTES RECEIVED PATIENT AWAKE IN BED WITH NO DISTRESS NOTED. CALL LIGHT WITHIN REACH. SITTER AT BEDSIDE. NO C/O PAIN OR DISCOMFORT. PERIPHERAL LINE INTACT AND PATENT. ROOM FREE OF CALL LIGHT AND BELONGINGS KEPT NEAR BEDSIDE. WILL CONTINUE TO MONITOR.
--- NOTE | 2018-11-14 20:15 | NUR ---
RN Notes Received patient asleep, HOB slightly elevated, on room air and tolerated well. Patient calm and quiet. Denies sob, pain , nausea and vomiting. Patient cooperateive with care. Safety measures and fall precaution observed. Sitter at bedside. Kept comfortable and attended with call light within reach. will continue to monitor patient.
[2018-11-14] MEDS: ENOXAPARIN SODIUM 40 MG/0.4 ML DISP.SYRIN SQ SCH (21:52)
[2018-11-14] MEDS: QUETIAPINE FUMARATE 100 MG TABLET PO SCH (21:52)
[2018-11-15 04:00] VITALS: BP 115/68
--- NOTE | 2018-11-15 05:47 | NUR ---
RN Notes Patient slept well overnight, vital signs stable. No complain of pain or any discomforts. No episode of seizure noted. Patient calm and cooperative with care. Safety measures and fall precaution observe. Sitter at bedside. All needs attended. Will continue to monitor and will endorse accordingly.
--- NOTE | 2018-11-15 07:05 | NUR ---
MS RN OPENING NOTES RECEIVED PT LYING ON BED,ALERT/ORIENTED X1.LYING CALMLY ON BED.SIDE RAILS IS SECURED FOR SEIZURE.WASTE AND BATTING WASTE CHOPPER SITTER IS AT BEDSIDE.ON ROOM AIR,SATURATING WELL.NO SOB AND ACUTE DISTRESS NOTED.IV LINE IS ON RIGHT FA G20,SL.SITE IS CLEAN,DRY AND INTACT.NO INFILTRATION NOTED.BED IS IN LOW POSITION AND LOCKED,CALL LIGHT IS WITHIN REACH.WILL CONTINUE TO MONITOR THE PT CLOSELY.
[2018-11-15 08:00] VITALS: BP 111/65
[2018-11-15] MEDS: LEVETIRACETAM SOL (5 ML) 100 MG/ML UDC PO SCH (08:14)
[2018-11-15] MEDS: QUETIAPINE FUMARATE 25 MG TABLET PO SCH ×2 (08:14→16:46)
[2018-11-15] MEDS: FAMOTIDINE/PF INJ 20 MG/2 ML VIAL IV SCH (08:14)
[2018-11-15 16:00] VITALS: BP 124/74
--- NOTE | 2018-11-15 18:00 | NUR ---
MS HOUSEKEEPING STAFF NOTES PT IS DISCHARGED TO [facility] BY AMBULANCE.CONVEYOR INSTALLER GAVE THE REPORT TO THE FACILITY.PT IS CLEAN AND DRY.ALL THE DISCHARGE MEDICATIONS AND INSTRUCTIONS GIVEN TO EMS STAFF.MEDS PRESCRIPTION GIVEN.IV LINE ON RIGHT FA G20 IS REMOVED.NO COMPLICATIONS NOTED.NO BELONGINGS NOTED.
== END 2018-11-15 18:00 | disposition home or self-care (01) | DRG 208 ==
LOC: ER 16:46 → ICU 18:58 → TELE1 11-09 12:56 → MEDSG1 11-11 10:54
PROVIDERS: ADMIT Registered Nurse; ATTEND Nurse Practitioner Acute Care
PROC: 5A1935Z Respiratory Ventilation, Less than 24 Consecutive Hours (ICD-10-PCS; principal; 2018-11-07)
PROC: 0BH17EZ Insertion of Endotracheal Airway into Trachea, Via Natural or Artificial Opening (ICD-10-PCS; 2018-11-07)
DX: J96.01 Acute respiratory failure with hypoxia (principal); J69.0 Pneumonitis due to inhalation of food and vomit; N17.0 Acute kidney failure with tubular necrosis; F20.0 Paranoid schizophrenia; R45.851 Suicidal ideations; E44.1 Mild protein-calorie malnutrition; E87.2 Acidosis; R65.10 Systemic inflammatory response syndrome (SIRS) of non-infectious origin without acute organ dysfunction; G40.401 Other generalized epilepsy and epileptic syndromes, not intractable, with status epilepticus; D69.6 Thrombocytopenia, unspecified; Z88.8 Allergy status to other drugs, medicaments and biological substances; Z79.899 Other long term (current) drug therapy; F17.200 Nicotine dependence, unspecified, uncomplicated; D63.8 Anemia in other chronic diseases classified elsewhere; F31.9 Bipolar disorder, unspecified; N40.0 Benign prostatic hyperplasia without lower urinary tract symptoms; Z81.8 Family history of other mental and behavioral disorders; T50.905A Adverse effect of unspecified drugs, medicaments and biological substances, initial encounter; Y92.89 Other specified places as the place of occurrence of the external cause
CPT/HCPCS: 36415; 36600; 70450-TC; 71045-TC; 80048-TC; 80053-TC; 80061-TC; 80076-TC; 80177; 80202-TC; 80305; 81000-TC; 82803-TC; 83605-TC; 83735-TC; 84100-TC; 84443-TC; 85025-TC; 87040-TC; 87081-TC; 87086-TC; 92526; 92611-TC; 94002-TC; 94003-TC; 94799-TC; 95819-TC; 97116-TC; 97530-TC; 99082-TC; A4216; A6402; A9563; G0378; G0480; J0461; J1650; J1953; J2060; J2543; J3370; J3480; J3490; J7030; J7040; J7060; Q0163